=== PATIENT | male | born 1950 | race Caucasian/White ===

== ENCOUNTER 2016-07-22 19:17 | Emergency (ER) | payer MEDICARE, OTHER ==
[2016-07-22 19:31] VITALS: BP 149/79
[2016-07-22] MEDS ORDERED: diphenhydrAMINE 50 MG Cap PO ONE (20:03)
[2016-07-22] MEDS ORDERED: Ketorolac 60 MG/2 ML SDV IM ONE (20:03)
[2016-07-22] MEDS ORDERED: Ondansetron 4 MG Tab.DIS PO ONE (20:03)
[2016-07-22] MEDS ORDERED: Haloperidol Lactate 5 MG/ML SDV IM ONE (20:03)
--- NOTE | 2016-07-22 20:15 | EDM.PDOC ---
ED HPI HEADACHE COMPLAINT - General Chief Complaint: Gastrointestinal Problem Stated Complaint: HERNIA SURGERY PT HAVING NAUSEA/MIGRAINE Time Seen by Provider: 07/22/16 19:48 Source of Information: Reports: Patient History Limitations: Reports: No limitations - History of Present Illness INITIAL COMMENTS - FREE TEXT/NARRATIVE: Patient is a 65-year-old male who presents to the ED complaining of migraine headache. Patient was recently discharged from the hospital 30 minutes prior to arrival after having umbilical hernia and inguinal hernia repair this morning. Patient states while riding in the vehicle he became nauseated and thus developed a migraine headache. States he is permanently disabled for migraine headaches 2nd to multiple triggers. Headache is located to the left side of his head: Retro-orbital, left parietal, and occipital. He has no vision changes. Headache is following similar symptomatology as previous headaches. It is not described as the worse headache of his life. Normally the patient with onset of migraine at home will lay still in a dark room that is quite. Takes propanolol and Zofran. There have been a few times to which he has seeked treatment in the E.D. Denies any vision changes, fever/chills, shortness of breath, chest pain, neck stiffness, or any additional complaints. Patient states the pain to his abdomen is minimal. Past with a history of hypertension, seasonal allergies, low-grade asthma, neuropathy, migraines, osteoarthritis. Current medications include: nortriptyline, propanolol, senna, Avodart, carvedilol, lisinopril, naproxen, albuterol. Timing/Duration: Reports: gradual onset Location: Reports: frontal, occipital, parietal, left, eye, left Quality: Reports: pounding, squeezing Severity: Reports: moderate, similar to past headaches. Denies: worst headache ever Context: Reports: other (nausea/riding in a car) Associated Symptoms: Reports: hyperacusis, photophobia. Denies: aura, dizziness , vision changes Treatments TRAFFIC ENUMERATOR: Reports: Other (see below) (none stated) - Related Data Allergies/ADRs: Allergies Allergy/AdvReac Type Severity Reaction Status Date / Time latex Allergy Blisters Verified 07/22/16 19:32 metoprolol Allergy Cannot Verified 07/22/16 19:32 Remember Sulfa (Sulfonamide Allergy Hives Verified 07/22/16 19:32 Antibiotics) valdecoxib [From Bextra] Allergy Hives Verified 07/22/16 19:32 aspirin AdvReac Nausea Verified 07/22/16 19:32 ibuprofen AdvReac gi upset Verified 07/22/16 19:32 Home Meds: Home Meds Albuterol [IJD: Ventolin HFA] 2 puff INH Q4H PRN #18 gm 01/14/16 [Rx] Ondansetron [Zofran ODT] 4 mg PO Q6H PRN #5 tab.dis 01/14/16 [Rx] Carvedilol 6.25 mg PO DAILY 07/21/16 [History] Clobetasol Propionate [Temovate] 1 applic TOP ASDIRECTED PRN 07/21/16 [History] Lisinopril [Prinivil] 40 mg PO DAILY 07/21/16 [History] Naproxen Sodium [Aleve] 1 - 2 tab PO Q6H PRN 07/21/16 [History] Nortriptyline 25 mg PO DAILY 07/21/16 [History] Propranolol [Inderal LA] 80 mg PO DAILY PRN 07/21/16 [History] Dutasteride [Avodart] 0.5 mg PO DAILY #30 cap 07/22/16 [Rx] Sennosides/Docusate Sodium [Senna S Tablet] 2 tab PO BID #30 tablet 07/22/16 [Rx ] Past Medical History HEENT History: Reports: Allergic rhinitis Cardiovascular History: Reports: Hypertension Respiratory History: Reports: None, Other (see below) Other Respiratory History: . Gastrointestinal History: Reports: GERD, Other (see below) Other Gastrointestinal History: L inguinal hernia Genitourinary History: Reports: Retention, urinary SLEEP TECH History: Reports: None Musculoskeletal History: Reports: Osteoarthritis, Other (see below) Other Musculoskeletal History: chronic hip pain Neurological History: Reports: Migraines Psychiatric History: Reports: Anxiety Endocrine/Metabolic History: Reports: None, Other (see below) (pt did have increased BS 128, states has strong family hx and has discussed with Dr Dugan) Hematologic History: Reports: None Immunologic History: Reports: None Oncologic (Cancer) History: Reports: None Dermatologic History: Reports: None - Past Surgical History Head Surgeries/Procedures: Reports: None HEENT Surgical History: Reports: Naso-sinus surgery Cardiovascular Surgical History: Reports: None Respiratory Surgical History: Reports: None GI Surgical History: Reports: Colonoscopy, Hernia repair/other Male Surgical History: Reports: None Endocrine Surgical History: Reports: None Neurological Surgical History: Reports: None Oncologic Surgical History: Reports: None Dermatological Surgical History: Reports: None - Past Imaging History Past Imaging History: Reports: None Social & Family History - Tobacco Use Smoking Status *Q: Never Smoker - Caffeine Use Caffeine Use: Reports: None - Recreational Drug Use Recreational Drug Use: No ED ROS GENERAL - Review of Systems Review Of Systems: See Below Constitutional: Reports: no symptoms HEENT: Reports: No symptoms Respiratory: Reports: No Symptoms Cardiovascular: Reports: No symptoms GI/Abdominal: Reports: Abdominal pain (s/p inguinal and umbilical hernia repair. ), Nausea. Denies: Vomiting : Reports: urinary retention (agarwal in place s/p surgery) Neurological: Reports: Headache, Difficulty Walking (2nd to right hip pain). Denies: Dizziness, Numbness, Tingling, Weakness - Physical Exam Exam: See Below Exam Limited By: No limitations General Appearance: alert, WD/WN, no apparent distress Eye Exam: bilateral eye: EOMI, PERRL Ears: hearing grossly normal Nose: normal inspection Throat/Mouth: Normal voice, No airway compromise Neck: normal inspection, supple Respiratory/Chest: no respiratory distress, lungs clear, normal breath sounds, no accessory muscle use Cardiovascular: normal peripheral pulses, regular rate, rhythm GI/Abdominal: normal bowel sounds, soft, tender (To surgical incision sites. Sites are intact with no erythema/swelling/drainage) Neuro Exam (Abbreviated): alert, oriented, CN II-XII intact, normal cognition, no motor/sensory deficits, other (cerebellar function intact) Psychiatric: normal affect, normal mood Skin Exam: Warm, Dry, Intact, Normal color Course - Vital Signs Last Recorded V/S: Last Vital Signs Temp 97.9 F 07/22/16 19:25 Pulse 60 07/22/16 19:25 Resp 18 07/22/16 19:25 BP 149/79 H 07/22/16 19:25 Pulse Ox 96 07/22/16 19:25 - Orders/Labs/Meds Orders: Active Orders 24 hr Category Date Time Status EKG Documentation Completion [RC] STAT Care 07/22/16 20:06 Active Meds: Medications Discontinued Medications Generic Name Dose Route Start Last Admin Trade Name Freq PRN Reason Stop Dose Admin Diphenhydramine HCl 50 mg 07/22/16 20:03 07/22/16 20:14 Benadryl PO 07/22/16 20:04 50 mg ONETIME ONE Administration Haloperidol Lactate 5 mg 07/22/16 20:03 07/22/16 20:17 Haldol IM 07/22/16 20:04 5 mg ONETIME ONE Administration Ketorolac Tromethamine 60 mg 07/22/16 20:03 07/22/16 20:18 Toradol IM 07/22/16 20:04 60 mg ONETIME ONE Administration Ondansetron HCl 4 mg 07/22/16 20:03 07/22/16 20:14 Zofran Odt PO 07/22/16 20:04 4 mg ONETIME ONE Administration - Re-Assessments/Exams Free Text/Narrative Re-Assessment/Exam: 07/22/16 20:10 Ordered EKG to better assess QT interval. Patient is on multiple medications that can prolong it. In addition medications ordered include Haldol 5 mg IM, Toradol 60 mg IM, Zofran 4 mg ODT, and Benadryl 50mgs by mouth can prolong as well. EKG sinus rhythm at a rate of 69, ND interval 177, QTC 401, no acute ST changes noted. 2044 Reassessment, headache has resolved with the above medications. Will get the patient up and see how he does. 07/22/16 21:20 patient got up and walked with no difficulties. Will discharge patient home. Departure - Departure Time of Disposition: 21:21 Disposition: Home, Self-Care 01 Condition: good Clinical Impression: S/P inguinal hernia repair, Urinary retention Migraine Qualifiers: Migraine type: unspecified Status migrainosus presence: without status migrainosus Intractability: not intractable Qualified Code(s): G43.909 - Migraine, unspecified, not intractable, without status migrainosus Instructions: Nausea and Vomiting, Adult, [id number], Pain Medicine Instructions, [id number], Abdominal Pain, Adult, [id number] Referrals: Monique Dugan MD [Primary Care Provider] - Forms: ED Department Discharge Additional Instructions: As discussed take all medications as prescribed. Follow instructions by Dr. Dugan. Suggest going home finding a dark room that allows undated disturbed sleep. Followup with your primary care provider as needed for migraine management. Return to the ED for any new or worsening symptoms. No driving this evening since receiving a sedative medication. - My Orders Last 24 Hours: My Active Orders 07/22/16 20:06 EKG Documentation Completion [RC] STAT - Assessment/Plan Last 24 Hours: My Active Orders 07/22/16 20:06 EKG Documentation Completion [RC] STAT
== END 2016-07-22 21:35 | disposition home or self-care (01) ==
LOC: JD.ED 19:17
DX: G43.909 Migraine, unspecified, not intractable, without status migrainosus (principal); R33.9 Retention of urine, unspecified; Z98.890 Other specified postprocedural states; I10 Essential (primary) hypertension; F41.9 Anxiety disorder, unspecified; Z79.899 Other long term (current) drug therapy; Z88.6 Allergy status to analgesic agent; Z88.2 Allergy status to sulfonamides; Z88.8 Allergy status to other drugs, medicaments and biological substances; Z91.040 Latex allergy status
CPT/HCPCS: 93005; 96372; 99283; A9270; J1630; J1885

== ENCOUNTER → 2016-07-22 | Day surgery (SDC) | payer MEDICARE, OTHER ==
[~2016-07-22] MED LIST: Acetaminophen/Codeine 300-30 MG Tab PO ONE; HYDROmorphone 0.5 MG/0.5 ML Syringe IVPUSH PRN; HYDROmorphone 1 MG/ML Syringe ONE; Lactated Ringers 1,000 ML IV SCH; Lactated Ringers 1,000 ML ONE; Lidocaine 1%/Sod Bicarbonate in NS 8.4% 1 ML Syringe IV PRN; Midazolam 1 MG/ML 2 ML SDV ONE; Ondansetron 4 MG/2 ML SDV IVPUSH PRN; Propofol 200 MG/20 ML SDV ONE; Rocuronium 50 MG/5 ML Vial ONE; Sodium Chloride 0.9% 10 ML Syringe FLUSH PRN; ceFAZolin 1 GM Vial ONE; diphenhydrAMINE 50 MG/ML SDV IVPUSH PRN; fentaNYL 100 MCG/2 ML SDV IVPUSH PRN; fentaNYL 100 MCG/2 ML SDV ONE; fentaNYL 250 MCG/5 ML SDV ONE
--- NOTE | 2016-07-22 05:30 | PCM.SN ---
- Free Text/Narrative Note: Patient did acquire preoperative clearance with Dr. Scott prior to surgery on . Echo completed on 07/01/16: Conclusion: 1. Left ventricular ejection fraction is 70 to 75%. LV cavity size is normal. Systolic function is normal with no obvious regional wall motion abnormalities noted. 2. Impaired left ventricular relaxation with normal LV filling pressures-( Grade I Diastolic Dysfunction). Labs completed: Results for MORRIS ROCHA Ref. Range 07/01/2016 09:49 WBC Latest Ref Range: 4.0 - 11.0 K/uL 7.1 RBC Latest Ref Range: 4.40 - 5.80 M/uL 5.23 Hemoglobin Latest Ref Range: 13.5 - 17.5 g/dL 15.9 Hematocrit Latest Ref Range: 40.0 - 50.0 % 47.2 MCV Latest Ref Range: 80.0 - 98.0 fL 90.2 MCH Latest Ref Range: 25.5 - 34.0 pg 30.4 MCHC Latest Ref Range: 31.5 - 36.5 g/dL 33.7 RDW-CV Latest Ref Range: 11.5 - 15.5 % 13.6 RDW-SD Latest Ref Range: 35.5 - 50.0 fl 44.9 Platelet Count Latest Ref Range: 140 - 400 K/uL 181 MPV Latest Ref Range: 8.5 - 12.0 fL 11.0 Seg Neut Absolute Latest Ref Range: 1.8 - 8.0 K/uL 3.8 Lymphocytes Absolute Latest Ref Range: 0.8 - 4.1 K/uL 2.2 Monocytes Absolute Latest Ref Range: 0.0 - 1.0 K/uL 0.7 Eosinophils Absolute Latest Ref Range: 0.0 - 0.7 K/uL 0.4 Basophil Absolute Latest Ref Range: 0.0 - 0.2 K/uL 0.0 Neutrophils Percent Latest Units: % 54.4 Lymphocytes Percent Latest Units: % 30.6 Monocytes Percent Latest Units: % 9.6 Eosinophils Percent Latest Units: % 5.0 Basophil Percent Latest Units: % 0.4 Glucose Latest Ref Range: 70 - 99 mg/dL 121 (H) Sodium Latest Ref Range: 137 - 145 meq/L 140 Potassium Latest Ref Range: 3.5 - 5.1 meq/L 4.4 Chloride Latest Ref Range: 98 - 107 meq/L 103 CO2 Latest Ref Range: 22 - 30 meq/L 23 Anion Gap with K Latest Ref Range: 10 - 20 meq/L 18 BUN Latest Ref Range: 9 - 20 mg/dL 19 Creatinine Latest Ref Range: 0.80 - 1.50 mg/dL 1.00 BUN/Creatinine Ratio Unknown 19.0 Calcium Latest Ref Range: 8.4 - 10.2 mg/dL 9.6 Bilirubin Total Latest Ref Range: 0.2 - 1.3 mg/dL 0.9 Alkaline Phosphatase Latest Ref Range: 38 - 126 U/L 71 ALT - SGPT Latest Ref Range: 21 - 72 U/L 29 AST - SGOT Latest Ref Range: 17 - 59 U/L 28 Protein Total Latest Ref Range: 6.3 - 8.2 g/dL 7.6 Albumin Latest Ref Range: 3.5 - 5.0 g/dL 4.1 eGFR Latest Ref Range: >=60 mL/min/1.73m2 >90 eGFR Non- Latest Ref Range: >=60 mL/min/1.73m2 75 Hetal Miguel NP General Surgery
--- NOTE | 2016-07-22 07:24 | PCM.PREANE ---
Preanesthetic Assessment - Anesthesia/Transfusion/Family Hx Anesthesia History: Prior Anesthesia Without Reaction Other Type of Anesthesia Reaction Comment: pt states that he was unable to void after last surgery-nose Family History of Anesthesia Reaction: No Family History of Anesthesia Reaction, Other: none Transfusion History: No Prior Transfusion(s) - Review of Systems General: No Symptoms Pulmonary: Cough (pt states he inhaled some chemicals on Wednesday that led to a cough, none now) Cardiovascular: No Symptoms Gastrointestinal: No symptoms Neurological: No Symptoms Other: Reports: None - Physical Assessment NPO Status Date: 07/21/16 NPO Status Time: 20:00 Pulse: 58 O2 Sat by Pulse Oximetry: 98 Respiratory Rate: 16 Blood Pressure: 145/79 Height: 1.78 m Weight: 90.718 kg ASA Class: 2 Mental Status: Alert & Oriented x3 Airway Class: Mallampati = 2 Dentition: Reports: Normal Dentition Thyro-Mental Finger Breadths: 2 Mouth Opening Finger Breadths: 2 ROM/Head Extension: Full Lungs: Clear to auscultation, Normal respiratory effort Cardiovascular: Regular Rate, Regular Rhythm (pt states has been told he has a "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 sound"-unable to appreciate) - Allergies Allergies/Adverse Reactions: Allergies Allergy/AdvReac Type Severity Reaction Status Date / Time aspirin Allergy Nausea Verified 07/21/16 15:47 ibuprofen Allergy gi upset Verified 07/21/16 15:47 latex Allergy Blisters Verified 07/21/16 15:47 metoprolol Allergy Cannot Verified 07/21/16 15:47 Remember Sulfa (Sulfonamide Allergy Cannot Verified 07/21/16 15:47 Antibiotics) Remember valdecoxib [From Bextra] Allergy Hives Verified 07/21/16 15:47 - Anesthesia Plan Pre-Op Medication Ordered: Other (ancef 2 G) Beta Elise: Carvedilol Med Last Dose Date: 07/22/16 Med Last Dose Time: 04:30 - Acknowledgements Anesthesia Type Planned: General Anesthesia Pt an Appropriate Candidate for the Planned Anesthesia: Yes Alternatives and Risks of Anesthesia Discussed w Pt/Guardian: Yes Pt/Guardian Understands and Agrees with Anesthesia Plan: Yes PreAnesthesia Questionnaire HEENT History: Reports: Allergic rhinitis Cardiovascular History: Reports: Hypertension Respiratory History: Reports: None, Other (see below) (pt states has inhaler for specific occurances of coughing, which is chemically related, states prior to wednesday he had not used his inhaler for a at least a month) Gastrointestinal History: Reports: GERD (takes OTC med when necessary), Other ( see below) Other Gastrointestinal History: L inguinal hernia Genitourinary History: Reports: None, Other (see below) (pt had trouble voiding after last surgery, has discussed with Dr Dugan) WING COMMANDER History: Reports: None Musculoskeletal History: Reports: Osteoarthritis (pt does use a cane), Other ( see below) Other Musculoskeletal History: chronic hip pain Neurological History: Reports: Migraines Psychiatric History: Reports: Anxiety Endocrine/Metabolic History: Reports: None, Other (see below) (pt did have increased BS 128, states has strong family hx and has discussed with Dr Dugan) Hematologic History: Reports: None Immunologic History: Reports: None Oncologic (Cancer) History: Reports: None Dermatologic History: Reports: None - Past Surgical History Head Surgeries/Procedures: Reports: None HEENT Surgical History: Reports: Naso-sinus surgery Cardiovascular Surgical History: Reports: None Respiratory Surgical History: Reports: None GI Surgical History: Reports: Colonoscopy Female Surgical History: Reports: None Male Surgical History: Reports: None Endocrine Surgical History: Reports: None Neurological Surgical History: Reports: None Musculoskeletal Surgical History: Reports: None Oncologic Surgical History: Reports: None Dermatological Surgical History: Reports: None - Past Imaging History Past Imaging History: Reports: None - SUBSTANCE USE Smoking Status *Q: Never Smoker Recreational Drug Use History: No - HOME MEDS Home Medications: Home Meds Albuterol [IJD: Ventolin HFA] 2 puff INH Q4H PRN #18 gm 01/14/16 [Rx] Ondansetron [Zofran ODT] 4 mg PO Q6H PRN #5 tab.dis 01/14/16 [Rx] Carvedilol [Carvedilol] 6.25 mg PO DAILY 07/21/16 [History] Clobetasol Propionate [Temovate] 1 applic TOP ASDIRECTED PRN 07/21/16 [History] Lisinopril [Prinivil] 40 mg PO DAILY 07/21/16 [History] Naproxen Sodium [Aleve] 1 - 2 tab PO Q6H PRN 07/21/16 [History] Nortriptyline 25 mg PO DAILY 07/21/16 [History] Propranolol [Inderal LA] 80 mg PO DAILY PRN 07/21/16 [History] - CURRENT (IN HOUSE) MEDS Current Meds: Current Medications Lactated Ringer's (Ringers, Lactated) 1,000 mls @ 125 mls/hr IV ASDIRECTED SAPNA Lidocaine/Sodium Bicarbonate (Buffered Lidocaine 1% In Ns 8.4%) 0.25 ml IV ONETIME PRN PRN Reason: Prior to IV Start Sodium Chloride (Saline Flush) 10 ml FLUSH ASDIRECTED PRN PRN Reason: Keep Vein Open Discontinued Medications Cefazolin Sodium (Ancef) Confirm Administered Dose 1 gm .ROUTE .STK-MED ONE Stop: 07/22/16 07:02 Cefazolin Sodium (Ancef) Confirm Administered Dose 1 gm .ROUTE .STK-MED ONE Stop: 07/22/16 07:02 Fentanyl (Sublimaze) Confirm Administered Dose 250 mcg .ROUTE .STK-MED ONE Stop: 07/22/16 07:03 Midazolam HCl (Versed 1 Mg/Ml) Confirm Administered Dose 2 mg .ROUTE .STK-MED ONE Stop: 07/22/16 07:03 Propofol (Diprivan 20 Ml) Confirm Administered Dose 200 mg .ROUTE .STK-MED ONE Stop: 07/22/16 07:02 Rocuronium [place] (Zemuron) Confirm Administered Dose 50 mg .ROUTE .STK-MED ONE Stop: 07/22/16 07:07
[2016-07-22] MEDS: Bupivacaine 0.5%/EPINEPHrine 1:200,000 50 ML MDV ONE ×2 (08:41→09:18)
[2016-07-22] MEDS: Lidocaine 1% with EPINEPHrine 1:100,000 20 ML MDV ONE ×2 (08:41→09:19)
--- NOTE | 2016-07-22 10:48 | PCM.OPNOTE ---
- General Post-Op/Procedure Note Date of Surgery/Procedure: 07/22/16 Operative Procedure(s): Laparoscopic bilateral inguinal hernia repair with mesh (ADRIAN) with incidental primary umbilical hernia repair Pre Op Diagnosis: Left inguinal hernia, tiny umbilical hernia Post-Op Diagnosis: Bilateral pantaloon defects, tiny umbilical hernia Anesthesia Technique: General ET tube, Local (40 mL) Primary Surgeon: Monique Dugan Anesthesia Provider: Mary Olivarez Fluid Replacement, Intraop: 1,500 EBL in mLs: 2 Drain/Tube Comments:: Perry left in place due to history of urinary retention with last operation requiring straight cath, BPH, and small amt of blood with Perry placement (although placement was atraumatic) Complications: None Condition: Good Free Text/Narrative:: Implanted Devices: Bard 3DMAX left and right-sided size XL mesh Indication for Procedure: The patient is a 65-year-old man who was referred to me by Dr. Leann Scott regarding a symptomatic left inguinal hernia. He was also noted to have a small umbilical hernia on exam. We discussed laparoscopic inguinal herniorrhaphy with mesh, left possible bilateral and primary repair of his umbilical hernia. Risks and benefits were reviewed. He does have a history of severe urinary retention after a rhinoplasty requiring catheterization. He does not follow with Urology. Description of Procedure: The patient was taken to the operating room and placed in the supine position. Sequential compressive devices were placed on the bilateral lower extremities. Preoperative antibiotics were administered as per protocol. After induction of general endotracheal anesthesia a Perry catheter was placed by the nursing staff with a small amount of blood with initial placement followed by drainage of concentrated yellow urine. The placement itself had been atraumatic and the Perry had been fully inserted to the hub prior to placement. The arms were tucked at the sides bilaterally and the pressure points were adequately padded. The abdomen was then prepped and draped in usual sterile fashion and an Ioban was applied. A curvilinear supraumbilical incision was then made using a scalpel after first injecting local anesthetic. The incision was deepened down to the fascia and the umbilical hernia was identified and was used to enter the abdomen. The abdomen was bluntly using a hemostat. A David trocar was advanced into the abdomen and the abdomen was insufflated to 15 mm of mercury using CO2. The abdomen was surveyed. Two additional 5 mm low profile trocars were then placed in the mid-lateral abdomen under direct visualization after injecting local anesthetic. The patient was then placed in Trendelenburg. The patient had bilateral pantaloon hernias, left larger than right. The peritoneum was then taken down beginning at the anterior superior iliac spine on the right, progressing to the contralateral side. The peritoneum was then stripped away down to the pubic tubercle exposing Alfred's ligament. The iliac vessels were then exposed and the indirect hernia sac was able to be dissected away from the cord structures utilizing blunt dissection and the harmonic scalpel. The direct defects were also reduced. Great care was taken to avoid the gonadal vessels and the vas defrens, which were dissected away from the hernia sac. There was no evidence of obturator or femoral hernia on either side. Extra large Bard 3DMAX mesh was selected. An 0-Vicryl interrupted suture was placed on the mesh prior to insertion for ease of manipulation. The mesh was placed into the preperitoneal space and unfurled covering all possible hernia defects. The mesh was secured with 2 tacks using the Ethicon secure strap tacker, 1 to Alfred's ligament, and 1 anterolaterally near the anterior superior iliac spine. The peritoneum was then tacked back into place, covering the mesh entirely, using an Ethicon secure strap tacker. During the dissection a small hole was created in the peritoneum overlying the area of the iliacs on the right. I did attempt to repair this with suturing, however this only slightly enlarged the hole as the peritoneum was quite thin in this area. Ultimately, I patched over the area with Seppra Film to prevent bowel adhesion to the tiny area of exposed mesh. The 5 mm trocars were removed under direct visualization with no evidence of bleeding. The David trocar was removed. The umbilical hernia fascial defect was closed using a running 0-Vicryl suture. Additional local anesthetic was injected genevieve- incisionally. 4-0 Monocryl suture was then to tack the umbilical skin back down to the fascia and was used to close the skin incisions. Dermabond was applied. The Perry catheter was left in place (see below). The bilateral testicles were confirmed to be in their normal positions within the scrotum at the end of the case. The patient was awakened from anesthesia, extubated, and transferred to the recovery room in stable condition having tolerated the procedure well. Sponge and instrument counts were reported as correct as the end of the case. Postoperative Plan: I discussed with the patient's daughter my intraoperative findings and post-operative care instructions. The patient does have prostatic hypertrophy on his recent CT aortogram with run off, as well as a small amount of blood with catheter placement today, and a history of severe urinary retention after surgery, for these reasons I will leave his Perry catheter in place until next Wednesday where I will plan to remove it in clinic. I have also started the patient on finasteride as he is intolerant to sulfa moieties and cannot be started on Flomax. Additionally have placed a urology consultation for the patient regarding his urinary issues. The patient will be allowed to further recover and once they are awakened fully from anesthesia may be discharged home this afternoon. The patient is not to lift greater than ten pounds for the next six weeks. They are to call the office with any questions or concerns regarding their incision sites. They may shower tomorrow. They have been counseled on some anticipation of some urinary retention and perineal ecchymosis. The patient desired to take some leftover Tylenol #3 he had at home for pain and no additional prescription was given. He also had Zofran ODT at home. Senna S was recommended to prevent constipation.
--- NOTE | 2016-07-22 10:57 | PCM.POSTAN ---
POST ANESTHESIA ASSESSMENT - MENTAL STATUS Mental Status: alert, oriented - VITAL SIGNS Pulse Rate: 75 SaO2: 97 Resp Rate: 7 Blood Pressure: 150/86 Temperature: 97.9 C - RESPIRATORY Respiratory Status: respiratory rate WNL, airway patent, O2 saturation stable - CARDIOVASCULAR CV Status: pulse rate WNL, blood pressure stable - GASTROINTESTINAL GI Status: no symptoms - PAIN Pain Score: 0 - POST OP HYDRATION Hydration Status: adequate & stable
[2016-07-22 18:44] VITALS: BP 126/67
--- NOTE | 2016-07-23 07:26 | PCM48HPAN ---
Post Anesthesia Note - EVALUATION WITHIN 48HRS OF ANESTHETIC Vital Signs in Normal Range: Yes Patient Participated in Evaluation: No (pt discharged, taken from chart) Respiratory Function Stable: Yes Airway Patent: Yes Cardiovascular Function Stable: Yes Hydration Status Stable: Yes Pain Control Satisfactory: Yes Nausea and Vomiting Control Satisfactory: No (Pt was dischared and then readmitted to ER then stabilized and discharged ) Mental Status Recovered: Yes
== END | disposition home or self-care (01) ==
LOC: JD.SDS 07:08
PROVIDERS: ATTEND Surgery
DX: K40.20 Bilateral inguinal hernia, without obstruction or gangrene, not specified as recurrent (principal); K42.9 Umbilical hernia without obstruction or gangrene; Z88.2 Allergy status to sulfonamides; Z91.040 Latex allergy status; Z88.8 Allergy status to other drugs, medicaments and biological substances; I10 Essential (primary) hypertension; K21.9 Gastro-esophageal reflux disease without esophagitis; F41.9 Anxiety disorder, unspecified; Z68.27 Body mass index [BMI] 27.0-27.9, adult; Z98.890 Other specified postprocedural states; J30.2 Other seasonal allergic rhinitis; Z79.899 Other long term (current) drug therapy; G43.909 Migraine, unspecified, not intractable, without status migrainosus; R33.9 Retention of urine, unspecified; Z88.6 Allergy status to analgesic agent
CPT/HCPCS: 36415; 36600; 49650; 49652; 82803; 83036; 93005; 96372; 99283; A9270; C1781; J0690; J1170; J1200; J1630; J1885; J2250; J3010; J7120; 00830; J2704

== ENCOUNTER 2016-12-17 03:18 | Emergency (ER) | payer MEDICARE, OTHER ==
[2016-12-17 03:33] VITALS: BP 187/87
[2016-12-17] MEDS ORDERED: Ondansetron 4 MG/2 ML SDV IVPUSH ONE (03:54)
[2016-12-17] MEDS ORDERED: Morphine 4 MG/ML Syringe IVPUSH PRN (03:54)
[2016-12-17] MEDS ORDERED: Sodium Chloride 0.9% 10 ML Syringe FLUSH PRN (03:54)
[2016-12-17] MEDS ORDERED: Sodium Chloride 0.9% 1,000 ML IV ONE (03:54)
--- NOTE | 2016-12-17 03:55 | EDM.PDOC ---
ED HPI GENERAL MEDICAL PROBLEM - General Chief Complaint: Abdominal Pain Stated Complaint: GROIN PAIN Time Seen by Provider: 12/17/16 03:42 Source of Information: Reports: Patient History Limitations: Reports: No Limitations - History of Present Illness INITIAL COMMENTS - FREE TEXT/NARRATIVE: 66 y/o M presents with severe L flank pain. Started suddenly during the night. Woke him from sleep. Pain is sharp, severe, currently located in LLQ abdominal area. Slightly radiates to the left flank. Constant. No provoking or relieving factors. No dysuria or hematuria. No nausea, vomiting, or diarrhea. No fever. No hx of similar symptoms previously. Left Lower Abdomen Pain Score (Numeric/FACES): 9 - Related Data Allergies Allergy/AdvReac Type Severity Reaction Status Date / Time latex Allergy Blisters Verified 12/17/16 03:34 metoprolol Allergy Cannot Verified 12/17/16 03:34 Remember Sulfa (Sulfonamide Allergy Hives Verified 12/17/16 03:34 Antibiotics) valdecoxib [From Bextra] Allergy Hives Verified 12/17/16 03:34 aspirin AdvReac Nausea Verified 12/17/16 03:34 ibuprofen AdvReac gi upset Verified 12/17/16 03:34 Home Meds: Home Meds Albuterol [IJD: Ventolin HFA] 2 puff INH Q4H PRN #18 gm 01/14/16 [Rx] Carvedilol 6.25 mg PO DAILY 07/21/16 [History] Clobetasol Propionate [Temovate] 1 applic TOP ASDIRECTED PRN 07/21/16 [History] Lisinopril [Prinivil] 40 mg PO DAILY 07/21/16 [History] Naproxen Sodium [Aleve] 1 - 2 tab PO Q6H PRN 07/21/16 [History] Nortriptyline 25 mg PO DAILY 07/21/16 [History] Propranolol [Inderal LA] 80 mg PO DAILY PRN 07/21/16 [History] Dutasteride [Avodart] 0.5 mg PO DAILY #30 cap 07/22/16 [Rx] Acetaminophen/oxyCODONE [Percocet 325-5 MG] 1 tab PO Q6H PRN #20 tablet [Rx] Ondansetron [Zofran ODT] 4 mg PO Q6H PRN #15 tab.dis 12/17/16 [Rx] Sennosides/Docusate Sodium [Senna S Tablet] 2 tab PO BID PRN 12/17/16 [History] Past Medical History HEENT History: Reports: Allergic Rhinitis Cardiovascular History: Reports: Hypertension Respiratory History: Reports: None Other Respiratory History: . 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 Musculoskeletal History: Reports: Other (See Below), Osteoarthritis Other Musculoskeletal History: chronic hip pain Neurological History: Reports: Migraines Psychiatric History: Reports: Anxiety Endocrine/Metabolic History: Reports: Other (See Below) Hematologic History: Reports: None Immunologic History: Reports: None Oncologic (Cancer) History: Reports: None Dermatologic History: Reports: None - Past Surgical History Head Surgeries/Procedures: Reports: None HEENT Surgical History: Reports: Naso-Sinus Surgery Cardiovascular Surgical History: Reports: None GI Surgical History: Reports: Colonoscopy, Hernia Repair/Other Oncologic Surgical History: Reports: None Dermatological Surgical History: Reports: None - Past Imaging History Past Imaging History: Reports: None Social & Family History - Tobacco Use Smoking Status *Q: Never Smoker Second Hand Smoke Exposure: No - Caffeine Use Caffeine Use: Reports: Tea - Recreational Drug Use Recreational Drug Use: No ED ROS GENERAL - Review of Systems Review Of Systems: See Below Constitutional: Denies: Fever HEENT: Reports: No Symptoms Respiratory: Denies: Shortness of Breath, Cough Cardiovascular: Denies: Chest Pain Endocrine: Reports: No Symptoms GI/Abdominal: Reports: Abdominal Pain. Denies: Vomiting : Reports: Flank Pain. Denies: Dysuria Musculoskeletal: Reports: No Symptoms Skin: Reports: No Symptoms Neurological: Reports: No Symptoms ED EXAM, GI/ABD - Physical Exam Exam: See Below Exam Limited By: No Limitations General Appearance: Alert, WD/WN, Mild Distress Eyes: Bilateral: Normal Appearance Ears: Normal External Exam Nose: Normal Inspection Throat/Mouth: Normal Inspection, Normal Voice, No Airway Compromise Head: Atraumatic, Normocephalic Neck: Normal Inspection, Supple Respiratory/Chest: No Respiratory Distress, Lungs Clear, Normal Breath Sounds, No Accessory Muscle Use Cardiovascular: Regular Rate, Rhythm, No Murmur GI/Abdominal Exam: Soft, No Distention, Other (+LLQ TTP). No: Rebound Back Exam: CVA Tenderness (L). No: CVA Tenderness (R) Neurological: Alert, Oriented, Normal Cognition Psychiatric: Normal Affect, Normal Mood Skin Exam: Warm, Dry, Intact, Normal Color, No Rash Course - Vital Signs Last Recorded V/S: Last Vital Signs Temp 36.6 C 12/17/16 03:25 Pulse 69 12/17/16 03:25 Resp 18 12/17/16 03:25 BP 187/87 H 12/17/16 03:25 Pulse Ox 100 12/17/16 03:25 - Orders/Labs/Meds Orders: Active Orders 24 hr Category Date Time Status Peripheral IV Care [RC] . DIRECTED Care 12/17/16 03:54 Active Abdomen Pelvis wo Cont [CT] Stat Exams 12/17/16 03:54 Taken Peripheral IV Insertion Adult [OM.PC] Routine Oth 12/17/16 03:54 Ordered Labs: Laboratory Tests 12/17/16 12/17/16 12/17/16 Range/Units 03:30 04:00 04:00 WBC 10.37 H (4.23-9.07) K/mm3 RBC 5.60 (4.63-6.08) M/mm3 Hgb 16.4 (13.7-17.5) gm/L Hct 48.3 (40.1-51.0) % MCV 86.3 (79.0-92.2) fl MCH 29.3 (25.7-32.2) pg MCHC 34.0 (32.2-35.5) g/dl RDW Std Deviation 40.9 (35.1-43.9) fL Plt Count 179 (163-337) K/mm3 MPV 10.6 (9.4-12.3) fl Neut % (Auto) 79.8 H (34.0-67.9) % Lymph % (Auto) 11.1 L (21.8-53.1) % [place] % (Auto) 7.4 (5.3-12.2) % Eos % (Auto) 1.0 (0.8-7.0) Baso % (Auto) 0.4 (0.1-1.2) % Neut # (Auto) 8.28 H (1.78-5.38) K/mm3 Lymph # (Auto) 1.15 L (1.32-3.57) K/mm3 [place] # (Auto) 0.77 (0.30-0.82) K/mm3 Eos # (Auto) 0.10 (0.04-0.54) K/mm3 Baso # (Auto) 0.04 (0.01-0.08) K/mm3 Sodium 139 (136-145) mEq/L Potassium 3.6 (3.5-5.1) mEq/L Chloride 103 (98-107) mEq/L Carbon Dioxide 27 (21-32) mEq/L Anion Gap 12.6 (5-15) BUN 23 H (7-18) mg/dL Creatinine 1.2 (0.7-1.3) mg/dL Est Cr Clr Drug Dosing 62.52 mL/min Estimated GFR (MDRD) > 60 (>60) mL/min BUN/Creatinine Ratio 19.2 H (14-18) Glucose 118 H (80-115) mg/dL Calcium 9.7 (8.5-10.1) mg/dL Total Bilirubin 0.9 (0.2-1.0) mg/dL AST 23 (15-37) U/L ALT 28 (16-63) U/L Alkaline Phosphatase 91 (46-116) U/L Total Protein 8.1 (6.4-8.2) g/dl Albumin 4.3 (3.4-5.0) g/dl Globulin 3.8 gm/dL Albumin/Globulin Ratio 1.1 (1-2) Urine Color Yellow (Yellow) Urine Appearance Clear (Clear) Urine pH 7.0 (5.0-8.0) Ur Specific [place] 1.025 (1.005-1.030) Urine Protein Trace H (Negative) Urine Glucose (UA) Negative (Negative) Urine Ketones Negative (Negative) Urine Occult Blood Negative (Negative) Urine Nitrite Negative (Negative) Urine Bilirubin Negative (Negative) Urine Urobilinogen 0.2 (0.2-1.0) Ur Leukocyte Esterase Negative (Negative) Urine RBC 0-5 (0-5) /hpf Urine WBC 0-5 (0-5) /hpf Ur Epithelial Cells 0-5 (0-5) /hpf Urine Bacteria Few (FEW) /hpf Urine Mucus Few (FEW) /hpf Meds: Medications Discontinued Medications Generic Name Dose Route Start Last Admin Trade Name Freq PRN Reason Stop Dose Admin Hydromorphone HCl 1 mg 12/17/16 04:41 12/17/16 04:45 Dilaudid IVPUSH 12/17/16 04:42 1 mg ONETIME ONE Administration Hydromorphone HCl 1 mg 12/17/16 04:53 Dilaudid IVPUSH Q1H PRN Pain Sodium Chloride 1,000 mls @ 1,000 mls/hr 12/17/16 03:54 12/17/16 04:01 Normal Saline IV 12/17/16 04:53 1,000 mls/hr ONETIME ONE Administration Morphine Sulfate 4 mg 12/17/16 03:54 12/17/16 04:05 Morphine IVPUSH 4 mg Q2H PRN Administration Pain Ondansetron HCl 4 mg 12/17/16 03:54 12/17/16 04:05 Zofran IVPUSH 12/17/16 03:55 4 mg ONETIME ONE Administration Sodium Chloride 10 ml 12/17/16 03:54 12/17/16 03:50 Saline Flush FLUSH 10 ml ASDIRECTED PRN Administration Keep Vein Open - Re-Assessments/Exams Free Text/Narrative Re-Assessment/Exam: 12/17/16 06:35 CT shows 2mm ureterolithiasis at the L UPJ. Creatinine 1.2. Given small distal stone, counselled patient that he is likely to pass it. Pain meds and fluids given, felt better. Discussed need for urology f/u and return precautions. Departure - Departure Time of Disposition: 06:41 Disposition: Home, Self-Care 01 Clinical Impression: Ureterolithiasis - Discharge Information Prescriptions: Acetaminophen/oxyCODONE [Percocet 325-5 MG] 1 tab PO Q6H PRN #20 tablet PRN Reason: Pain Ondansetron [Zofran ODT] 4 mg PO Q6H PRN #15 tab.dis PRN Reason: Nausea Referrals: Leann Scott DO [Primary Care Provider] - Forms: ED Department Discharge Additional Instructions: 1. Take percocet as prescribed for pain. No driving, working, or operating heavy machinery while taking this medication since it could make you confused or sleepy. 2. Take ondansetron as needed for nausea 3. Followup with a urologist in about a week if you continue to have pain. Both [facility] and [facility] in [place] have urology specialists. 4. Return to the ED if you have severe pain, vomiting without keeping fluids down, fever, or other concerning symptoms. - My Orders Last 24 Hours: My Active Orders 12/17/16 03:54 Peripheral IV Care [RC] . DIRECTED Abdomen Pelvis wo Cont [CT] Stat Peripheral IV Insertion Adult [OM.PC] Routine - Assessment/Plan Last 24 Hours: My Active Orders 12/17/16 03:54 Peripheral IV Care [RC] . DIRECTED Abdomen Pelvis wo Cont [CT] Stat Peripheral IV Insertion Adult [OM.PC] Routine
[2016-12-17] MEDS ORDERED: HYDROmorphone 1 MG/ML Syringe IVPUSH ONE (04:41)
[2016-12-17] MEDS ORDERED: HYDROmorphone 1 MG/ML Syringe IVPUSH PRN (04:53)
--- NOTE | 2016-12-17 08:51 | CT ---
CT abdomen and pelvis Technique: Multiple axial sections were obtained from above the dome of the diaphragm inferiorly through the pubic symphysis. Intravenous and oral contrast was not given. Study performed as a ureteral stone protocol. Findings: Inflammatory change noted around the left kidney. Left kidney is slightly swollen. Hydronephrosis of the left kidney is seen with dilated left ureter to the UVJ. These findings are caused by an obstructing distal left ureteral stone measuring approximately 2.5 mm. Visualized lung bases show slight scarring or atelectasis within the right base. Noncontrast appearance of the liver and spleen appears within normal limits. Small hiatal hernia is noted. Gallbladder shows no calcified gallstones. Adrenal glands show no nodule. Pancreas appears within normal limits. Aorta shows no aneurysmal dilatation. No retroperitoneal adenopathy is seen. No pelvic mass or adenopathy is seen. Mild increased stool noted within the colon. Appendix is seen which appears normal. Bone window settings were reviewed which show scattered degenerative spurring with mild scoliosis being seen within the spine. Severe degenerative change noted within the right hip with flattening and cystic change being seen within the femoral head as well as cystic change within the acetabulum. Moderate degenerative change seen within the left hip. Impression: 1. 2.5 mm obstructing stone within the distal left ureter. This obstructing stone causes proximal hydronephrosis as well as inflammatory change around the left kidney as well as swelling within the left kidney. 2. Other incidental findings as noted above. Diagnostic code #3 I agree with preliminary report issued by [email or web address] ([facility] report finalized on 12/17/16, 5:33 AM Central Time)
== END 2016-12-17 06:06 | disposition home or self-care (01) ==
LOC: JD.ED 03:18
DX: N13.2 Hydronephrosis with renal and ureteral calculous obstruction (principal); I10 Essential (primary) hypertension; Z91.040 Latex allergy status; Z88.2 Allergy status to sulfonamides; Z88.6 Allergy status to analgesic agent; Z79.899 Other long term (current) drug therapy
CPT/HCPCS: 36415; 74176; 80053; 81001; 85025; 96361; 96374; 96375; 99284; J1170; J2270; J2405; J7040; J7050

== ENCOUNTER 2016-12-29 20:12 | Emergency (ER) | payer MEDICARE, OTHER ==
[2016-12-29 20:25] VITALS: BP 173/84
--- NOTE | 2016-12-29 20:56 | EDM.PDOC ---
ED HPI GENERAL MEDICAL PROBLEM - General Chief Complaint: Neurological Problem Stated Complaint: SHOOTING PAINS IN HEAD AND NECK Time Seen by Provider: 12/29/16 20:25 Source of Information: Reports: Patient, RN Notes Reviewed History Limitations: Reports: No Limitations - History of Present Illness INITIAL COMMENTS - FREE TEXT/NARRATIVE: The patient states that he woke with a shock-like pain that started at the right parieto-occipital junction and radiated down the back right of his head, and down the back right of his neck yesterday morning, 12/28/2016, around 01:00. These shock-like sensations recur every 1-3 minutes, lasting only 2-3 seconds , but are severe enough to cause the patient to flinch. The sensation is now spreading more to the right side of his head and to the right side of his face, and when they occur, he has pain in the right side of his throat. The patient reports being essentially pain-free in between the shocks. The patient has not identified any actions that either induce or prevent the sensation. He denies having a rash. He denies decreased hearing on the right. He reports no autonomic symptoms or tearing. No similar symptoms prior to yesterday morning. The patient's PCP is Dr. Leann Scott, who has not been notified of this event. Other Treatments [employer]: aleve Head Pain Score (Numeric/FACES): 0 - Related Data Allergies Allergy/AdvReac Type Severity Reaction Status Date / Time latex Allergy Blisters Verified 12/29/16 20:20 metoprolol Allergy Cannot Verified 12/29/16 20:20 Remember Sulfa (Sulfonamide Allergy Hives Verified 12/29/16 20:20 Antibiotics) valdecoxib [From Bextra] Allergy Hives Verified 12/29/16 20:20 aspirin AdvReac Nausea Verified 12/29/16 20:20 ibuprofen AdvReac gi upset Verified 12/29/16 20:20 Home Meds: Home Meds Carvedilol 12.5 mg PO DAILY 07/21/16 [History] Lisinopril [Prinivil] 40 mg PO DAILY 07/21/16 [History] Nortriptyline 25 mg PO DAILY 07/21/16 [History] amLODIPine [Norvasc] 5 mg PO DAILY 12/29/16 [History] Indomethacin [Indomethacin ER] 75 mg PO DAILY #15 capsule.er 12/30/16 [Rx] Past Medical History Cardiovascular History: Reports: High Cholesterol (diet-controlled), Hypertension Genitourinary History: Reports: Renal Calculus, Other (See Below) (Left kidney failure, resolved) Musculoskeletal History: Reports: Osteoarthritis (right hip and right knee) Psychiatric History: Reports: Anxiety, Depression Endocrine/Metabolic History: Reports: Diabetes, Type II (diet-controlled) - Past Surgical History HEENT Surgical History: Reports: Naso-Sinus Surgery (deviated septum), Oral Surgery (2 wisdom teeth) GI Surgical History: Reports: Colonoscopy, Hernia, Inguinal (left) - Past Imaging History Past Imaging History: Reports: None Social & Family History - Tobacco Use Smoking Status *Q: Never Smoker Second Hand Smoke Exposure: No - Caffeine Use Caffeine Use: Reports: Tea - Alcohol Use Alcohol Use History: No - Recreational Drug Use Recreational Drug Use: No - Living Situation & Occupation Living situation: Reports: , with Family (daughter) Occupation: Unemployed ED ROS GENERAL - Review of Systems Review Of Systems: See Below Constitutional: Reports: No Symptoms HEENT: Reports: No Symptoms Respiratory: Reports: No Symptoms Cardiovascular: Reports: No Symptoms Endocrine: Reports: No Symptoms GI/Abdominal: Reports: No Symptoms : Reports: No Symptoms Musculoskeletal: Reports: No Symptoms Skin: Reports: No Symptoms Neurological: Reports: No Symptoms Psychiatric: Reports: No Symptoms Hematologic/Lymphatic: Reports: No Symptoms Immunologic: Reports: No Symptoms - Physical Exam Exam: See Below Exam Limited By: No Limitations General Appearance: Alert, WD/WN, Mild Distress (periodically flinches with pain ) Eye Exam: Bilateral Eye: EOMI, Normal Inspection, PERRL Ears: Normal External Exam, Normal Canal, Hearing Grossly Normal, Normal TMs Nose: Normal Inspection, Normal Mucosa, No Blood Throat/Mouth: Normal Inspection, Normal Lips, Normal Teeth, Normal Gums, Normal Oropharynx, Normal Voice, No Airway Compromise Head Exam: Atraumatic, Normocephalic. No: Scalp Tenderness, Facial Tenderness Neck: Normal Inspection, Supple, Non-Tender, Full Range of Motion Respiratory/Chest: No Respiratory Distress, Lungs Clear, Normal Breath Sounds, No Accessory Muscle Use Cardiovascular: Normal Peripheral Pulses, Regular Rate, Rhythm, No Gallop, No JVD, No Murmur, No Rub GI/Abdominal: Normal Bowel Sounds, Soft, Non-Tender, No Organomegaly, No Distention, No Abnormal Bruit, No Mass (Male) Exam: Deferred Rectal (Males) Exam: Deferred Neuro Exam (Abbreviated): Alert, Oriented, Normal Cognition, No Motor/Sensory Deficits Back Exam: Normal Inspection, Full Range of Motion, NT Extremities: Normal Inspection, Normal Range of Motion, No Pedal Edema, Normal Capillary Refill Psychiatric: Normal Affect Skin Exam: Warm, Dry, Intact, Normal Color, No Rash Course - Vital Signs Last Recorded V/S: Last Vital Signs Temp 36.6 C 12/29/16 20:20 Pulse 74 12/29/16 20:20 Resp 17 12/29/16 20:20 BP 173/84 H 12/29/16 20:20 Pulse Ox 98 12/29/16 20:20 - Orders/Labs/Meds Orders: Active Orders 24 hr Category Date Time Status Head w Cont [CT] Routine Exams 12/29/16 Taken Head w Cont [CT] Stat Exams 12/29/16 20:52 Taken Sodium Chloride 0.9% [Normal Saline] 1,000 ml Med 12/29/16 21:00 Active IV ASDIRECTED Medication Orders Sodium Chloride (Normal Saline) 1,000 mls @ 150 mls/hr IV ASDIRECTED SAPNA Last Admin: 12/29/16 21:01 Dose: 150 mls/hr Labs: Laboratory Tests 12/29/16 Range/Units 21:05 Sodium 141 (136-145) mEq/L Potassium 3.9 (3.5-5.1) mEq/L Chloride 104 (98-107) mEq/L Carbon Dioxide 26 (21-32) mEq/L Anion Gap 14.9 (5-15) BUN 19 H (7-18) mg/dL Creatinine 0.9 (0.7-1.3) mg/dL Est Cr Clr Drug Dosing 83.36 mL/min Estimated GFR (MDRD) > 60 (>60) mL/min BUN/Creatinine Ratio 21.1 H (14-18) Glucose 131 H (80-115) mg/dL Calcium 9.1 (8.5-10.1) mg/dL Meds: Medications Generic Name Dose Route Start Last Admin Trade Name Freq PRN Reason Stop Dose Admin Sodium Chloride 1,000 mls @ 150 mls/hr 12/29/16 21:00 12/29/16 21:01 Normal Saline IV 150 mls/hr ASDIRECTED SAPNA Administration - Re-Assessments/Exams Free Text/Narrative Re-Assessment/Exam: 12/29/16 20:54 The description of the patient's headache is consistent with trigeminal neuralgia, with exception of the location. While the patient is now experiencing right head and right facial pain, the original pain, that he still has, starts at the right posterior parieto-occipital area, and radiates down the posterior aspect of side of his neck. This is not the distribution of the trigeminal nerve. Because of this, I suspect that the patient is suffering from a condition known as Primary Stabbing Headache. A physical abnormality, such as a mass, needs to be excluded. I have therefore ordered a CT of the head with contrast. I will check his renal function, and give IV fluid. 12/29/16 21:42 CT of the head without contrast is read by [facility] as "Chronic changes. No acute intracranial process." The CT ordered was with IV contrast. This was discussed with the environmental technician. He will repeat the CT scan with IV contrast. 12/30/16 00:05 CT of the head with IV contrast is read by [facility] as "No significant change from earlier examination. Postcontrast images does not reveal any pathologic enhancement." 12/30/16 00:17 Test results discussed with the patient. As above, the diagnosis is unclear. The distribution is not really consistent with trigeminal neuralgia, therefore it appears to be most likely that he is suffering from Primary Stabbing Headache. Recommended treatment is melatonin and Indocin. We do not carry melatonin here, although it is available [id number]. I will start the patient on Indocin, and e-prescribe additional. Further, I will refer the patient to a Neurologist for further evaluation. Departure - Departure Time of Disposition: 00:18 Disposition: Home, Self-Care 01 Condition: Fair Clinical Impression: Primary stabbing headache - Discharge Information Referrals: Leann Scott DO [Primary Care Provider] - Ángela Soares MD [Ordering Only Provider] - Forms: ED Department Discharge Additional Instructions: You were seen in the emergency room for right head and face shocking pain every few minutes. Workup in the ER included a basic metabolic panel and a CT scan of your head with IV contrast. Your entire workup was normal, with the exception of your blood sugar being elevated at 131. No brain tumors bleed were found. The cause of your symptoms is unclear, but you may have a condition called Primary Shocking Headache. Less likely, based on the distribution of your pain, is trigeminal neuralgia. The recommended treatment for Primary Shocking Headache is melatonin months old [id number], 3-12 mg per day, and Indocin (indomethacin). Take one tablet of Indocin, with food, daily. We recommend that you follow-up with the Neurologist Dr. Soares at the next available appointment. If any other problems, please do not hesitate to return to the ER. - My Orders Last 24 Hours: My Active Orders 12/29/16 Head w Cont [CT] Routine 12/29/16 20:52 Head w Cont [CT] Stat 12/29/16 21:00 Sodium Chloride 0.9% [Normal Saline] 1,000 ml IV ASDIRECTED - Assessment/Plan Last 24 Hours: My Active Orders 12/29/16 Head w Cont [CT] Routine 12/29/16 20:52 Head w Cont [CT] Stat 12/29/16 21:00 Sodium Chloride 0.9% [Normal Saline] 1,000 ml IV ASDIRECTED
[2016-12-29] MEDS ORDERED: Sodium Chloride 0.9% 1,000 ML IV SCH (21:00)
[2016-12-30] MEDS ORDERED: Indomethacin 25 MG Cap PO STA (00:15)
--- NOTE | 2016-12-30 08:21 | CT ---
Head CT Technique: Multiple axial sections through the brain were obtained. Intravenous contrast was not utilized. Comparison: No prior intracranial imaging. Findings: Ventricles along with basal cisterns and sulci over the convexities are mildly prominent. Low-density area noted within the left basal ganglia either due to old lacunar infarct or prominent perivascular space. No other abnormal parenchymal densities are seen. No evidence of intracranial hemorrhage. No midline shift or mass effect is seen. Bone window settings were reviewed which show no acute calvarial abnormality. Visualized sinuses are clear. Impression: 1. Incidental finding as noted above. Nothing acute is appreciated on noncontrast head CT study. Diagnostic code #2 I agree with preliminary report issued by [facility] ([facility] preliminary report dictated on 12/29/16, 10:37 PM Central Time)
--- NOTE | 2016-12-30 08:21 | CT ---
Head CT Technique: Multiple axial sections were obtained. Intravenous contrast was utilized. Comparison: Previous noncontrast study performed earlier on the same day. Findings: Ventricles along with basal cisterns and sulci over the convexities are mildly prominent. No abnormal parenchymal densities are seen. No areas of abnormal enhancement are seen. No midline shift or mass effect is seen. Bony structures remain unremarkable. Impression: 1. No acute intracranial abnormality is seen. No abnormal areas of enhancement are seen. Diagnostic code #1 Agree with preliminary report issued by [facility] ([facility] preliminary report dictated on 12/29/16, 11:50 PM Central Time)
--- NOTE | 2016-12-30 09:07 | CT ---
Head CT Technique: Multiple axial sections through the brain were obtained. Intravenous contrast was not utilized. Comparison: No prior intracranial imaging. Findings: Ventricles along with basal cisterns and sulci over the convexities are mildly prominent. Low-density area noted within the left basal ganglia either due to old lacunar infarct or prominent perivascular space. No other abnormal parenchymal densities are seen. No evidence of intracranial hemorrhage. No midline shift or mass effect is seen. Bone window settings were reviewed which show no acute calvarial abnormality. Visualized sinuses are clear. Impression: 1. Incidental finding as noted above. Nothing acute is appreciated on noncontrast head CT study. Diagnostic code #2 I agree with preliminary report issued by [facility] ([facility] preliminary report dictated on 12/29/16, 10:37 PM Central Time) Head CT Technique: Multiple axial sections were obtained. Intravenous contrast was utilized. Comparison: Previous noncontrast study performed earlier on the same day. Findings: Ventricles along with basal cisterns and sulci over the convexities are mildly prominent. No abnormal parenchymal densities are seen. No areas of abnormal enhancement are seen. No midline shift or mass effect is seen. Bony structures remain unremarkable. Impression: 1. No acute intracranial abnormality is seen. No abnormal areas of enhancement are seen. Diagnostic code #1 Agree with preliminary report issued by [facility] ([facility] preliminary report dictated on 12/29/16, 11:50 PM Central Time) [facility]
== END 2016-12-30 00:31 | disposition home or self-care (01) ==
LOC: JD.ED 20:12
DX: R51 Headache (principal); E78.00 Pure hypercholesterolemia, unspecified; I10 Essential (primary) hypertension; Z88.8 Allergy status to other drugs, medicaments and biological substances; Z88.2 Allergy status to sulfonamides; Z91.040 Latex allergy status; Z79.899 Other long term (current) drug therapy; E11.9 Type 2 diabetes mellitus without complications
CPT/HCPCS: 36415; 70470; 80048; 96360; 96361; 99284; A9270; J7040; 70460; 70460-26; 99282

== ENCOUNTER 2020-04-11 07:06 | Inpatient (IN) | payer MEDICARE, OTHER ==
--- NOTE | 2020-04-11 08:07 | EDM.PDOC ---
ED HPI GENERAL MEDICAL PROBLEM - General Chief Complaint: Gastrointestinal Problem Stated Complaint: RECTAL BLEEDING Time Seen by Provider: 04/11/20 08:07 Source of Information: Reports: Patient History Limitations: Reports: No Limitations - History of Present Illness INITIAL COMMENTS - FREE TEXT/NARRATIVE: 69-year-old male presents to the ED for evaluation of bright red blood passage per rectum. First time was after a bowel movement but is at approximately 1800 hrs. last evening. He states he then had 3-4 bowel movements following this. The first bowel movement was quite hard and somewhat painful to pass. All bowel movements after this contained bright red blood mixed in with the stool and on the outer part of the stool. He had blood per rectum at 0 430 and again at 0600 hrs. this morning. He has had some diffuse lower abdominal cramping pain. Patient was having been of cramping this morning that he did take 1 Tylenol No. 3 tablets about 0500 hrs. He has had bilateral inguinal hernia rap[place] is with mesh graft placement done by Dr. Gris Dugan at [facility] in the past. He has had no previous bleeding per rectum. Last colonoscopy was around age 50. No family history of colon cancer to his knowledge. He follows a strong vegan diet. Bowel function is usually fairly regular due to the high fiber in his diet. He is not on any blood thinners. The initial bowel movement was somewhat painful and difficult to pass. Subsequent bowel movements have not been painful at all. He is otherwise well. He does not feel weak dizzy or lightheaded or short of breath. Onset: Sudden Onset Date: 04/10/20 Onset Time: 18:00 Duration: Hour(s):, Intermittent Location: Reports: Abdomen (Bleeding per rectum.) Quality: Reports: Other (Bright red bleeding per rectum x4) Severity: Moderate (episodes since 1800 hrs. 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 (see below) (1.) Lower Abdomen Pain Score (Numeric/FACES): 1 - Related Data Allergies Allergy/AdvReac Type Severity Reaction Status Date / Time latex Allergy Blisters Verified 04/11/20 07:20 metoprolol Allergy Cannot Verified 04/11/20 07:20 Remember Sulfa (Sulfonamide Allergy Hives Verified 04/11/20 07:20 Antibiotics) valdecoxib [From Bextra] Allergy Hives Verified 04/11/20 07:20 aspirin AdvReac Nausea Verified 04/11/20 07:20 ibuprofen AdvReac gi upset Verified 04/11/20 07:20 Home Meds: Home Meds Nortriptyline 25 mg PO DAILY 07/21/16 [History] lisinopriL [Prinivil] 40 mg PO DAILY 07/21/16 [History] Indomethacin [Indomethacin ER] 75 mg PO DAILY #15 capsule.er 12/30/16 [Rx] Acetaminophen/Codeine [Tylenol with Codeine No.3 300MG/30MG] 1 tab PO Q4H PRN 04/11/20 [History] Past Medical History HEENT History: Reports: Allergic Rhinitis Cardiovascular History: Reports: High Cholesterol, Hypertension Respiratory History: Reports: None Other Respiratory History: . Gastrointestinal History: Reports: Chronic Constipation, GERD, Other (See Below) Other Gastrointestinal History: L inguinal hernia. 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 Musculoskeletal History: Reports: Osteoarthritis Other Musculoskeletal History: chronic hip pain Neurological History: Reports: Migraines Psychiatric History: Reports: Anxiety, Depression Endocrine/Metabolic History: Reports: Diabetes, Type II Hematologic History: Reports: None Immunologic History: Reports: None Oncologic (Cancer) History: Reports: None Dermatologic History: Reports: None - Infectious Disease History Infectious Disease History: Reports: Chicken Pox, Mumps - Past Surgical History Head Surgeries/Procedures: Reports: None HEENT Surgical History: Reports: Naso-Sinus Surgery, Oral Surgery Cardiovascular Surgical History: Reports: None Respiratory Surgical History: Reports: None GI Surgical History: Reports: Colonoscopy, Hernia, Inguinal Male Surgical History: Reports: None Endocrine Surgical History: Reports: None Neurological Surgical History: Reports: None Musculoskeletal Surgical History: Reports: None Oncologic Surgical History: Reports: None Dermatological Surgical History: Reports: None - Past Imaging History Past Imaging History: Reports: None Social & Family History - Family History Family Medical History: No Pertinent Family History HEENT: Reports: Cataract Cardiac: Reports: High Cholesterol, Hypertension Respiratory: Reports: None GI: Reports: None : Reports: None OBGYN: Reports: None Musculoskeletal: Reports: Arthritis Neurological: Reports: Migraines Oncologic: Reports: Colon - Tobacco Use Tobacco Use Status *Q: Never Tobacco User - Caffeine Use Caffeine Use: Reports: Soda, Tea - Recreational Drug Use Recreational Drug Use: No - Living Situation & Occupation Living situation: Reports: , with Family (daughter) Occupation: Unemployed ED ROS GENERAL - Review of Systems Review Of Systems: See Below Constitutional: Denies: Fever, Chills, Malaise, Weakness, Fatigue HEENT: Reports: Glasses Respiratory: Reports: No Symptoms Cardiovascular: Reports: Blood Pressure Problem Endocrine: Reports: No Symptoms GI/Abdominal: Reports: Hematochezia : Reports: Frequency (Urinary frequency.) Musculoskeletal: Reports: Back Pain, Joint Pain (Vaginal low back pain arthritis knees hips neck which he takes indomethacin 75 mg extended release) Skin: Reports: No Symptoms ( as needed 4.) Neurological: Reports: No Symptoms Psychiatric: Reports: No Symptoms Hematologic/Lymphatic: Reports: No Symptoms ED EXAM, GI/ABD - Physical Exam Exam: See Below Exam Limited By: No Limitations General Appearance: Alert, WD/WN, No Apparent Distress, Other (Vital signs show temperature 36.6 with a heart rate of 98 in sinus respiratory is 18 with O2 sats 98% room air BP slightly elevated 164/79. Patient does have a primary hypertension problem but is anxious upon arrival in the ED.) Eyes: Bilateral: Normal Appearance (No blepharal pallor or scleral icterus appreciated.) Throat/Mouth: Normal Inspection, Normal Lips, Normal Oropharynx Respiratory/Chest: No Respiratory Distress, Lungs Clear, Normal Breath Sounds, No Accessory Muscle Use Cardiovascular: Normal Peripheral Pulses, Regular Rate, Rhythm, No Edema, No Gallop, No Murmur, No Rub GI/Abdominal Exam: Soft, No Organomegaly, No Abnormal Bruit, No Mass, Pelvis Stable, Tender (Oddly tender left upper lateral left abdomen), Abnormal Bowel Sounds, Other (Previous umbilical surgery for laparoscopic hernia repairs.). No: Guarding, Rigid, Rebound ( with no rebound tenderness or guarding.) (Male) Exam: No Hernia Back Exam: Normal Inspection, Full Range of Motion. No: CVA Tenderness (L), CVA Tenderness (R) Extremities: Normal Inspection, Normal Range of Motion, Non-Tender, No Pedal Edema Neurological: Alert, Oriented, CN II-XII Intact, Normal Cognition Psychiatric: Normal Affect, Normal Mood, Anxious Skin Exam: Warm, Dry, Intact (Anxious as to be expected), Normal Color, No Rash Course - Vital Signs Last Recorded V/S: Last Vital Signs Temp 36.6 C 04/11/20 07:25 Pulse 98 04/11/20 07:25 Resp 18 04/11/20 07:25 BP 164/79 H 04/11/20 07:25 Pulse Ox 98 04/11/20 07:25 - Orders/Labs/Meds Orders: Active Orders 24 hr Category Date Time Status Dextrose 5%-0.9% NaCl [Dextrose 5%-Normal Saline] 1,000 Med 04/11/20 10:30 Active ml IV ASDIRECTED Sodium Chloride 0.9% [Saline Flush] Med 04/11/20 10:41 Active 10 ml FLUSH ONETIME PRN Medication Orders Dextrose/Sodium Chloride (Dextrose 5%-Normal Saline) 1,000 mls @ 150 mls/hr IV ASDIRECTED SAPNA Last Admin: 04/11/20 10:37 Dose: 150 mls/hr Documented by: ZACHARY Sodium Chloride (Saline Flush) 10 ml FLUSH ONETIME PRN PRN Reason: IV FLUSH Last Admin: 04/11/20 11:50 Dose: 10 ml Documented by: Admin: 04/11/20 10:45 Dose: 10 ml Documented by: ZACHARY Labs: Laboratory Tests 04/11/20 04/11/20 04/11/20 Range/Units 08:54 08:54 08:54 WBC 13.82 H (4.23-9.07) K/mm3 RBC 5.26 (4.63-6.08) M/mm3 Hgb 15.9 (13.7-17.5) gm/dl Hct 48.1 (40.1-51.0) % MCV 91.4 (79.0-92.2) fl MCH 30.2 (25.7-32.2) pg MCHC 33.1 (32.2-35.5) g/dl RDW Std Deviation 45.2 H (35.1-43.9) fL Plt Count 154 L (163-337) K/mm3 MPV 11.4 (9.4-12.3) fl Neut % (Auto) 82.6 H (34.0-67.9) % Lymph % (Auto) 9.8 L (21.8-53.1) % [place] % (Auto) 6.6 (5.3-12.2) % Eos % (Auto) 0.6 L (0.8-7.0) Baso % (Auto) 0.2 (0.1-1.2) % Neut # (Auto) 11.42 H (1.78-5.38) K/mm3 Lymph # (Auto) 1.35 (1.32-3.57) K/mm3 [place] # (Auto) 0.91 H (0.30-0.82) K/mm3 Eos # (Auto) 0.08 (0.04-0.54) K/mm3 Baso # (Auto) 0.03 (0.01-0.08) K/mm3 Manual Slide Review Normal smear PT 11.4 (9.7-12.0) SECONDS INR 1.07 APTT 27.7 (21.7-31.4) SECONDS Sodium 141 (136-145) mEq/L Potassium 4.3 (3.5-5.1) mEq/L Chloride 104 (98-107) mEq/L Carbon Dioxide 28 (21-32) mEq/L Anion Gap 13.3 (5-15) BUN 24 H (7-18) mg/dL Creatinine 1.1 (0.7-1.3) mg/dL Est Cr Clr Drug Dosing 65.44 mL/min Estimated GFR (MDRD) > 60 (>60) mL/min BUN/Creatinine Ratio 21.8 H (14-18) Glucose 112 (80-115) mg/dL Calcium 9.2 (8.5-10.1) mg/dL Total Bilirubin 1.0 (0.2-1.0) mg/dL AST 37 (15-37) U/L ALT 57 (16-63) U/L Alkaline Phosphatase 99 (46-116) U/L C-Reactive Protein 5.0 H* (<1.0) mg/dL Total Protein 7.5 (6.4-8.2) g/dl Albumin 4.0 (3.4-5.0) g/dl Globulin 3.5 gm/dL Albumin/Globulin Ratio 1.1 (1-2) Meds: Medications Generic Name Dose Route Start Last Admin Trade Name Emily PRN Reason Stop Dose Admin Dextrose/Sodium Chloride 1,000 mls @ 150 mls/hr 04/11/20 10:30 04/11/20 10:37 Dextrose 5%-Normal Saline IV 150 mls/hr ASDIRECTED SAPNA Administration Sodium Chloride 10 ml 04/11/20 10:41 04/11/20 11:50 Saline Flush FLUSH 10 ml ONETIME PRN Administration IV FLUSH Discontinued Medications Generic Name Dose Route Start Last Admin Trade Name Freq PRN Reason Stop Dose Admin Diatrizoate Meglum/Diatrizoate Sod 120 ml 04/11/20 10:41 04/11/20 11:50 Gastrografin 37% PO 04/11/20 10:42 45 ml ONETIME ONE Administration Iopamidol 50 ml 04/11/20 10:41 04/11/20 11:50 Isovue-300 (61%) IVPUSH 04/11/20 10:42 50 ml ONETIME ONE Administration Iopamidol 100 ml 04/11/20 10:41 04/11/20 11:50 Isovue-300 (61%) IVPUSH 04/11/20 10:42 100 ml ONETIME ONE Administration Lidocaine HCl 10 ml 04/11/20 08:31 04/11/20 09:05 Xylocaine 2% Jelly MUCMEM 04/11/20 08:32 10 ml ONETIME ONE Administration - Radiology Interpretation Free Text/Narrative:: 69-year-old male presents to the ED with recurrent bowel movements containing bright red blood since around 1800 hrs. last evening. He states the initial bowel movement was somewhat hard and painful to pass and followed by by other 3 other bowel movements over the next 3 hours. All contained a little bit of blood. Subsequently he has had a solid blood stool per rectum at 0430 hrs. and again at 0600 hrs. this morning containing a large amount of clots. His vital signs are otherwise stable. No past history of bleeding per rectum. Last colonoscopy age 50 which is nearly 20 years ago. Plan viscous lidocaine will be applied to the anus and rectal vault. We will proceed with a rigid sigmoidoscopy to see if the blood is coming from upper portions of the colon or in the lower 12 inches. Procedure explained in full to the patient and consent will be obtained. Routine labs will be obtained a CBC CMP and CRP. Patient will also have a urinalysis performed since he reports the urine to be quite dark in color. - Re-Assessments/Exams Free Text/Narrative Re-Assessment/Exam: 04/11/20 10:28 Total white count is mildly elevated at 13.82. Differential shows 82.6% neutrophils on the auto differential. Hemoglobin is 15.9 with hematocrit of 48.1. Platelet count 154,000 PT is 11.4 with an INR of 1.07 PTT is 27.7. Sodium 141 with potassium 4.3 chloride 104 with a bicarb of 28 anion gap is 13.3. BUN is 24 with a creatinine of 1.1. GFR is greater than 60. BUN/creatinine ratio slightly elevated at 21.8. Glucose 112. Calcium 9.2. Liver function normal. C-reactive protein elevated at 5.0. Total protein is 7.5 with an albumin fraction of 4.0. 04/11/20 10:32 rigid sigmoidoscopy performed up to 17 cm and I only encountered a lot of darker blood and bright red blood with no definitive clots. The blood coated the entire lining of the colon and I was unable to visualize normal mucosa. There does not appear to be any significant internal hemorrhoids. Lab tests reveal an elevated white count of 13.92 with a left shift suggesting an infective process. CRP is elevated at 5.0. This brings into question whether or not he may have some low-grade diverticulitis as he has tenderness upper left colon laterally. We will therefore proceed with CT of the abdomen and pelvis with oral and IV contrast. IV will be D5 normal saline at 150 mils per hour. 04/11/20 12:38 CT of the abdomen and pelvis has been completed with IV and oral contrast. Liver shows no discrete parenchymal abnormality. Spleen appears normal. Adrenal glands shows no nodule. Pancreas is within normal limits. Gallbladder contains no calcified gallstones. Kidneys show symmetric contrast enhancement. Very small low-density finding noted within the approximate mid left kidney measuring about 4 to 5 mm. This is nonspecific but most likely represents a minimal cyst. Aorta shows no aneurysm. No retroperitoneal adenopathy or mesenteric abnormalities are identified. No pelvic mass or adenopathy is appreciated. Small fat-containing partial left inguinal hernia appreciated. By history he had felt that they were had both been repaired by Dr. Gris Dugan 5 years ago. There is bowel wall thickening being seen mostly within the transverse colon and descending colon this involves a small portion of the sigmoid colon findings are compatible with a nonspecific colitis. Appendix is felt to be seen and normal. Delayed images show contrast within the distal ureters and bladder. Bone window settings were reviewed which shows mild scoliosis within the spine with mild scattered with scattered degenerative change. No acute osseous abnormalities appreciated severe diabetic degenerative changes seen within the right hip with mild degenerative changes noted within the left hip. 04/11/20 13:[address] Narvaez on-call surgeon and the decision made to keep the patient in the hospital for bowel cleanse overnight with a planed colonoscopy in the morning. Since there appears to be significant inflammation of the transverse colon and portions of the descending colon compatible with a possible colitis stools will be collected for culture and sensitivity x2 to rule out an infective process causing dysentery. Since the patient is a vegan there is a potential for enterogenic E. coli which should not be treated with antibiotic therapy. Departure - Departure Time of Disposition: 13:08 Disposition: Admitted As Inpatient 66 Condition: Fair Clinical Impression: Lower gastrointestinal hemorrhage - Discharge Information *PRESCRIPTION DRUG MONITORING PROGRAM REVIEWED*: Not Applicable *COPY OF PRESCRIPTION DRUG MONITORING REPORT IN PATIENT SEUN: Not Applicable Referrals: Fracisco Tam PA-C [Primary Care Provider] - Forms: ED Department Discharge Sepsis Event Note (ED) - Evaluation Sepsis Screening Result: No Definite Risk - Focused Exam Vital Signs: Vital Signs Temp Pulse Resp BP Pulse Ox 04/11/20 07:25 36.6 C 98 18 164/79 H 98 - My Orders Last 24 Hours: My Active Orders 04/11/20 10:30 Dextrose 5%-0.9% NaCl [Dextrose 5%-Normal Saline] 1,000 ml IV ASDIRECTED 04/11/20 10:41 Sodium Chloride 0.9% [Saline Flush] 10 ml FLUSH ONETIME PRN - Assessment/Plan Last 24 Hours: My Active Orders 04/11/20 10:30 Dextrose 5%-0.9% NaCl [Dextrose 5%-Normal Saline] 1,000 ml IV ASDIRECTED 04/11/20 10:41 Sodium Chloride 0.9% [Saline Flush] 10 ml FLUSH ONETIME PRN
[2020-04-11] MEDS ORDERED: Lidocaine 2% Jelly 10 ML Urojet MUCMEM ONE (08:31)
[2020-04-11] MEDS ORDERED: Dextrose 5%-0.9% NaCl 1,000 ML IV SCH (10:30)
[2020-04-11] MEDS ORDERED: Iopamidol 612 MG/ML 50 ML SDV IVPUSH ONE (10:41)
[2020-04-11] MEDS ORDERED: Iopamidol 612 MG/ML 100 ML Bottle IVPUSH ONE (10:41)
[2020-04-11] MEDS ORDERED: Diatrizoate Meglumine/Diatrizoate Sodium 37% 120 ML Bottle PO ONE (10:41)
[2020-04-11] MEDS: Sodium Chloride 0.9% 10 ML Syringe FLUSH PRN ×2 (10:45→11:50)
--- NOTE | 2020-04-11 12:31 | CT ---
CT abdomen and pelvis Technique: Multiple axial sections were obtained from above the dome of the diaphragm inferiorly through the pubic symphysis. Intravenous and oral contrast was utilized. Delayed images were also obtained through the bladder. Comparison: Prior CT abdomen and pelvis study of 12/17/16. Findings: Visualized lung bases shows mild bibasilar atelectasis. Liver shows no discrete parenchymal abnormality. Spleen appears normal. Adrenal glands show no nodule. Pancreas is within normal limits. Gallbladder contains no calcified gallstones. Kidneys show symmetric contrast enhancement. Very small low density finding noted within the approximate mid left kidney measuring about 4-5 mm. This is nonspecific but most likely represents a minimal cyst. Aorta shows no aneurysm. No retroperitoneal adenopathy or mesenteric abnormalities are seen. No pelvic mass or adenopathy is appreciated. Small fat containing partial left inguinal hernia is noted. There is bowel wall thickening being seen mostly within the transverse colon and descending colon. This involves a small portion of the sigmoid colon. Findings are compatible with a nonspecific colitis. Appendix is felt to be seen and is normal. Delayed images shows contrast within the distal ureters and bladder. Bone window settings were reviewed which shows mild scoliosis within the spine with mild scattered degenerative change. No acute osseous abnormality is appreciated. Severe degenerative change seen within the right hip with mild degenerative change is noted within the left hip. Impression: 1. Diffuse bowel wall thickening within the transverse, descending, and portions of the sigmoid colon compatible with a nonspecific colitis. 2. Other findings believed to be chronic as noted above. Diagnostic code #3
[2020-04-11] MEDS ORDERED: Polyethylene Glycol/Electrolytes 4,000 ML Bottle PO ONE ×2 (13:03→18:05)
--- NOTE | 2020-04-11 13:18 | PCM.HP.2 ---
H&P History of Present Illness - General Date of Service: 04/11/20 Admit Problem/Dx: Admission Diagnosis/Problem Admission Diagnosis/Problem Bleeding from anus Source of Information: Patient History Limitations: Reports: No Limitations - History of Present Illness Initial Comments - Free Text/Narative: Mr. Lira is a 69 yo man who presents with painless rectal bleeding. This is the first time this has happened. He noticed bloody stool last night, and had some unease and cramping that was relieved with passage of stool and james bright red blood. His last colonoscopy was about 20 years ago and no abnormalities were found. He denies personal or family history of inflammatory bowel disease, although he had a cousin who had some sort of ostomy in his 30s related to unspecified bowel issues. His maternal grandmother was diagnosed with metastatic colon cancer in her 80s. The patient reports hospitalization as a teenager with bowel issues. He does not know what his diagnosis was, but apparently there was mention for suspicion of appendicitis or need for surgery. His bowel habits tend to be regular, but he will periodically go several days without a bowel movement. He denies unintentional weight loss. He does not take anticoagulation or antiplatelet therapy. He takes naproxen and celebrex irregularly, as needed for arthritis which affects his right hip and knees more than anything. His arthritis is worse in the mornings. He had some initial blood work done to investigate for rheumatologic issues which came back normal. He reports symptoms of reflux, and sleeps with a few bricks under his mattress, which helps with these symptoms. He will take prilosec only as needed. He denies history of peptic ulcer and has never had an upper endoscopy. He has been hemodynamically stable in the ER with a normal Hgb on initial lab work. He has not passed any more blood per rectum since [address] scan shows wall thickening of the colon, most notably in the transverse colon, suggesting nonspecific colitis. His WBC is elevated at 13.8, and CRP elevated at 5. He is nontender on exam, and rectal exam is negative for palpable mass, tenderness, or gross blood. Onset of Symptoms: Reports: Today Lower Abdomen Pain Score (Numeric/FACES): 1 - Related Data Allergies/Adverse Reactions: Allergies Allergy/AdvReac Type Severity Reaction Status Date / Time latex Allergy Blisters Verified 04/11/20 07:20 metoprolol Allergy Cannot Verified 04/11/20 07:20 Remember Sulfa (Sulfonamide Allergy Hives Verified 04/11/20 07:20 Antibiotics) valdecoxib [From Bextra] Allergy Hives Verified 04/11/20 07:20 aspirin AdvReac Nausea Verified 04/11/20 07:20 ibuprofen AdvReac gi upset Verified 04/11/20 07:20 Home Medications: Home Meds Nortriptyline 25 mg PO DAILY 07/21/16 [History] lisinopriL [Prinivil] 40 mg PO DAILY 07/21/16 [History] Indomethacin [Indomethacin ER] 75 mg PO DAILY #15 capsule.er 12/30/16 [Rx] Acetaminophen/Codeine [Tylenol with Codeine No.3 300MG/30MG] 1 tab PO Q4H PRN 04/11/20 [History] Past Medical History HEENT History: Reports: Allergic Rhinitis Cardiovascular History: Reports: High Cholesterol, Hypertension Respiratory History: Reports: None Other Respiratory History: . Gastrointestinal History: Reports: Chronic Constipation, GERD, Other (See Below) Other Gastrointestinal History: L inguinal hernia. 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 Musculoskeletal History: Reports: Osteoarthritis Other Musculoskeletal History: chronic hip pain Neurological History: Reports: Migraines Psychiatric History: Reports: Anxiety, Depression Endocrine/Metabolic History: Reports: Diabetes, Type II Hematologic History: Reports: None Immunologic History: Reports: None Oncologic (Cancer) History: Reports: None Dermatologic History: Reports: None - Infectious Disease History Infectious Disease History: Reports: Chicken Pox, Mumps - Past Surgical History Head Surgeries/Procedures: Reports: None HEENT Surgical History: Reports: Naso-Sinus Surgery, Oral Surgery Cardiovascular Surgical History: Reports: None Respiratory Surgical History: Reports: None GI Surgical History: Reports: Colonoscopy, Hernia, Inguinal Male Surgical History: Reports: None Endocrine Surgical History: Reports: None Neurological Surgical History: Reports: None Musculoskeletal Surgical History: Reports: None Oncologic Surgical History: Reports: None Dermatological Surgical History: Reports: None - Past Imaging History Past Imaging History: Reports: None Social & Family History - Family History Family Medical History: No Pertinent Family History HEENT: Reports: Cataract Cardiac: Reports: High Cholesterol, Hypertension Respiratory: Reports: None GI: Reports: None : Reports: None OBGYN: Reports: None Musculoskeletal: Reports: Arthritis Neurological: Reports: Migraines Oncologic: Reports: Colon - Tobacco Use Tobacco Use Status *Q: Never Tobacco User - Caffeine Use Caffeine Use: Reports: Soda, Tea - Recreational Drug Use Recreational Drug Use: No - Living Situation & Occupation Living situation: Reports: , with Family (daughter) Occupation: Unemployed H&P Review of Systems - Review of Systems: Review Of Systems: See Below General: Reports: No Symptoms HEENT: Reports: No Symptoms Pulmonary: Reports: No Symptoms Cardiovascular: Reports: No Symptoms Gastrointestinal: Reports: Bloody Stool Genitourinary: Reports: No Symptoms Musculoskeletal: Reports: Joint Pain Skin: Reports: No Symptoms Psychiatric: Reports: No Symptoms Neurological: Reports: No Symptoms Hematologic/Lymphatic: Reports: No Symptoms Immunologic: Reports: No Symptoms Exam - Exam Exam: See Below - Vital Signs Vital Signs: Last Vital Signs Temp 36.6 C 04/11/20 07:25 Pulse 98 04/11/20 07:25 Resp 18 04/11/20 07:25 BP 164/79 H 04/11/20 07:25 Pulse Ox 98 04/11/20 07:25 Weight: 88.451 kg - Exam General: Alert, Oriented, Cooperative HEENT: Conjunctiva Clear Neck: Supple, Trachea Midline Lungs: Clear to Auscultation, Normal Respiratory Effort Cardiovascular: Regular Rate, Regular Rhythm GI/Abdominal Exam: Soft, Non-Tender, No Mass (Male) Exam: Normal Inspection Rectal (Males) Exam: Normal Exam, Normal Rectal Tone, Prostate Normal Back Exam: Other (no tenderness at sacroiliac joint) Skin: Warm, Dry Neuro Extensive - Mental Status: Alert, Oriented x3 Psychiatric: Normal Mood - Patient Data Lab Results Last 24 hrs: Laboratory Results - last 24 hr 04/11/20 04/11/20 04/11/20 Range/Units 08:54 08:54 08:54 WBC 13.82 H (4.23-9.07) K/mm3 RBC 5.26 (4.63-6.08) M/mm3 Hgb 15.9 (13.7-17.5) gm/dl Hct 48.1 (40.1-51.0) % MCV 91.4 (79.0-92.2) fl MCH 30.2 (25.7-32.2) pg MCHC 33.1 (32.2-35.5) g/dl RDW Std Deviation 45.2 H (35.1-43.9) fL Plt Count 154 L (163-337) K/mm3 MPV 11.4 (9.4-12.3) fl Neut % (Auto) 82.6 H (34.0-67.9) % Lymph % (Auto) 9.8 L (21.8-53.1) % Hays % (Auto) 6.6 (5.3-12.2) % Eos % (Auto) 0.6 L (0.8-7.0) Baso % (Auto) 0.2 (0.1-1.2) % Neut # (Auto) 11.42 H (1.78-5.38) K/mm3 Lymph # (Auto) 1.35 (1.32-3.57) K/mm3 Hays # (Auto) 0.91 H (0.30-0.82) K/mm3 Eos # (Auto) 0.08 (0.04-0.54) K/mm3 Baso # (Auto) 0.03 (0.01-0.08) K/mm3 Manual Slide Review Normal smear PT 11.4 (9.7-12.0) SECONDS INR 1.07 APTT 27.7 (21.7-31.4) SECONDS Sodium 141 (136-145) mEq/L Potassium 4.3 (3.5-5.1) mEq/L Chloride 104 (98-107) mEq/L Carbon Dioxide 28 (21-32) mEq/L Anion Gap 13.3 (5-15) BUN 24 H (7-18) mg/dL Creatinine 1.1 (0.7-1.3) mg/dL Est Cr Clr Drug Dosing 65.44 mL/min Estimated GFR (MDRD) > 60 (>60) mL/min BUN/Creatinine Ratio 21.8 H (14-18) Glucose 112 (80-115) mg/dL Calcium 9.2 (8.5-10.1) mg/dL Total Bilirubin 1.0 (0.2-1.0) mg/dL AST 37 (15-37) U/L ALT 57 (16-63) U/L Alkaline Phosphatase 99 (46-116) U/L C-Reactive Protein 5.0 H* (<1.0) mg/dL Total Protein 7.5 (6.4-8.2) g/dl Albumin 4.0 (3.4-5.0) g/dl Globulin 3.5 gm/dL Albumin/Globulin Ratio 1.1 (1-2) Result Diagrams: 04/11/20 08:54 04/11/20 08:54 Sepsis Event Note - Evaluation Sepsis Screening Result: No Definite Risk - Focused Exam Vital Signs: Vital Signs Temp Pulse Resp BP Pulse Ox 04/11/20 07:25 36.6 C 98 18 164/79 H 98 Problem List Initiated/Reviewed/Updated: Yes Orders Last 24hrs: Active Orders 24 hr Category Date Time Status Patient Status [ADT] Routine ADT 04/11/20 12:59 Ordered Activity as Tolerated [RC] .Routine Care 04/11/20 12:59 Ordered Antiembolic Devices [RC] PER UNIT ROUTINE Care 04/11/20 13:00 Ordered Communication Order [RC] ASDIRECTED Care 04/11/20 13:04 Ordered Oxygen Therapy [RC] PRN Care 04/11/20 12:59 Ordered RT Incentive Spirometry [RC] Q1HWA Care 04/11/20 12:59 Ordered Vital Signs [RC] Q4HR Care 04/11/20 12:59 Ordered Clear Liquid Diet [DIET] Diet 04/11/20 Breakfast Ordered Nothing Per Oral Diet [DIET] Diet 04/12/20 Breakfast Ordered BASIC METABOLIC PANEL,BMP [CHEM] AM Lab 04/12/20 05:11 Ordered CBC WITH AUTO DIFF [HEME] AM Lab 04/12/20 05:11 Ordered STOOL CULTURE/SHIGA TOXIN [MREF] Stat Lab 04/11/20 13:05 Ordered STOOL CULTURE/SHIGA TOXIN [MREF] Stat Lab 04/11/20 13:07 Ordered Dextrose 5%-0.9% NaCl [Dextrose 5%-Normal Saline] 1,000 Med 04/11/20 10:30 Active ml IV ASDIRECTED KCl/Na Sulf,Bicarb,Cl/PEG 3351 [GoLytely] Med 04/11/20 13:03 Once 4,000 ml PO ONETIME ONE Lactated Ringers @ 100 MLS/HR(1000ml Bag) Med 04/11/20 13:00 Ordered Lactated Ringers [Ringers, Lactated] 1,000 ml IV ASDIRECTED Sodium Chloride 0.9% [Saline Flush] Med 04/11/20 10:41 Active 10 ml FLUSH ONETIME PRN Schedule Procedure [COMM] Routine Oth 04/12/20 13:03 Ordered Sequential Compression Device [OM.PC] Routine Oth 04/11/20 12:59 Ordered Resuscitation Status Routine Resus Stat 04/11/20 12:59 Ordered Medication Orders Dextrose/Sodium Chloride (Dextrose 5%-Normal Saline) 1,000 mls @ 150 mls/hr IV ASDIRECTED SAPNA Last Admin: 04/11/20 10:37 Dose: 150 mls/hr Documented by: ZACHARY Lactated Ringer's (Ringers, Lactated) 1,000 mls @ 100 mls/hr IV ASDIRECTED SAPNA Polyethylene Glycol/Electrolytes (Golytely) 4,000 ml PO ONETIME ONE Stop: 04/11/20 13:04 Sodium Chloride (Saline Flush) 10 ml FLUSH ONETIME PRN PRN Reason: IV FLUSH Last Admin: 04/11/20 11:50 Dose: 10 ml Documented by: Admin: 04/11/20 10:45 Dose: 10 ml Documented by: ZACHARY Assessment/Plan Comment:: New onset rectal bleeding with evidence of colitis suggested by labs and imaging. Hemodynamically stable. Differential includes reactive colitis to intraluminal hemorrhage, infectious colitis, inflammatory bowel disease, possible malignancy. He reports symptoms of GERD and does not take antacid medication. He takes NSAIDs fairly regularly. Plan to admit to observation, complete bowel prep and perform EGD and colonoscopy for GI bleed tomorrow. -Vitals q 4h -no pain medication indicated -LR @ 100 cc/hr -activity as tolerated -clear liquids, NPO after midnight -Golytely bowel prep -repeat AM labs -stool cultures pending, no antibiotics indicated currently -SCD for DVT ppx - Mortality Measure Prognosis:: Good
--- NOTE | 2020-04-11 14:44 | PCM.PREANE ---
Preanesthetic Assessment - Procedure Proposed Procedure: EGD/Colonoscopy - Anesthesia/Transfusion/Family Hx Anesthesia History: Prior Anesthesia Reaction (Migraines/Nausea/Vomiting with anesthesia) Other Type of Anesthesia Reaction Comment: pt states that he was unable to void after last surgery-nose Family History of Anesthesia Reaction: No Family History of Anesthesia Reaction, Other: none Transfusion History: No Prior Transfusion(s) - Review of Systems General: Fatigue Pulmonary: No Symptoms Gastrointestinal: Constipation (with first stool), Hematochezia, Nausea Neurological: Numbness (left foot), Difficulty Walking (right hip "issues" uses cane), Weakness ( in legs, arthritis) Other: Reports: Neck Pain (right side) - Physical Assessment NPO Status Date: 04/11/20 NPO Status Time: 00:00 Vital Signs: Last Vital Signs Temp 36.6 C 04/11/20 07:25 Pulse 98 04/11/20 07:25 Resp 18 04/11/20 07:25 BP 164/79 H 04/11/20 07:25 Pulse Ox 98 04/11/20 07:25 Height: 1.78 m Weight: 88.451 kg ASA Class: 3 Mental Status: Alert & Oriented x3 Airway Class: Mallampati = 2 Dentition: Reports: Courtenay(s) Thyro-Mental Finger Breadths: 3 Mouth Opening Finger Breadths: 2 ROM/Head Extension: Limited/Partial Lungs: Clear to Auscultation, Normal Respiratory Effort Cardiovascular: Regular Rate, Regular Rhythm - Lab Values: Laboratory Last Values WBC 13.82 K/mm3 (4.23-9.07) H 04/11/20 08:54 RBC 5.26 M/mm3 (4.63-6.08) 04/11/20 08:54 Hgb 15.9 gm/dl (13.7-17.5) 04/11/20 08:54 Hct 48.1 % (40.1-51.0) 04/11/20 08:54 MCV 91.4 fl (79.0-92.2) 04/11/20 08:54 MCH 30.2 pg (25.7-32.2) 04/11/20 08:54 MCHC 33.1 g/dl (32.2-35.5) 04/11/20 08:54 RDW Std Deviation 45.2 fL (35.1-43.9) H 04/11/20 08:54 Plt Count 154 K/mm3 (163-337) L 04/11/20 08:54 MPV 11.4 fl (9.4-12.3) 04/11/20 08:54 Neut % (Auto) 82.6 % (34.0-67.9) H 04/11/20 08:54 Lymph % (Auto) 9.8 % (21.8-53.1) L 04/11/20 08:54 Crisp % (Auto) 6.6 % (5.3-12.2) 04/11/20 08:54 Eos % (Auto) 0.6 (0.8-7.0) L 04/11/20 08:54 Baso % (Auto) 0.2 % (0.1-1.2) 04/11/20 08:54 Neut # (Auto) 11.42 K/mm3 (1.78-5.38) H 04/11/20 08:54 Lymph # (Auto) 1.35 K/mm3 (1.32-3.57) 04/11/20 08:54 Crisp # (Auto) 0.91 K/mm3 (0.30-0.82) H 04/11/20 08:54 Eos # (Auto) 0.08 K/mm3 (0.04-0.54) 04/11/20 08:54 Baso # (Auto) 0.03 K/mm3 (0.01-0.08) 04/11/20 08:54 Manual Slide Review Normal smear 04/11/20 08:54 PT 11.4 SECONDS (9.7-12.0) 04/11/20 08:54 INR 1.07 04/11/20 08:54 APTT 27.7 SECONDS (21.7-31.4) 04/11/20 08:54 Sodium 141 mEq/L (136-145) 04/11/20 08:54 Potassium 4.3 mEq/L (3.5-5.1) 04/11/20 08:54 Chloride 104 mEq/L (98-107) 04/11/20 08:54 Carbon Dioxide 28 mEq/L (21-32) 04/11/20 08:54 Anion Gap 13.3 (5-15) 04/11/20 08:54 BUN 24 mg/dL (7-18) H 04/11/20 08:54 Creatinine 1.1 mg/dL (0.7-1.3) 04/11/20 08:54 Est Cr Clr Drug Dosing 65.44 mL/min 04/11/20 08:54 Estimated GFR (MDRD) > 60 mL/min (>60) 04/11/20 08:54 BUN/Creatinine Ratio 21.8 (14-18) H 04/11/20 08:54 Glucose 112 mg/dL (80-115) 04/11/20 08:54 Calcium 9.2 mg/dL (8.5-10.1) 04/11/20 08:54 Total Bilirubin 1.0 mg/dL (0.2-1.0) 04/11/20 08:54 AST 37 U/L (15-37) 04/11/20 08:54 ALT 57 U/L (16-63) 04/11/20 08:54 Alkaline Phosphatase 99 U/L (46-116) 04/11/20 08:54 C-Reactive Protein 5.0 mg/dL (<1.0) H* 04/11/20 08:54 Total Protein 7.5 g/dl (6.4-8.2) 04/11/20 08:54 Albumin 4.0 g/dl (3.4-5.0) 04/11/20 08:54 Globulin 3.5 gm/dL 04/11/20 08:54 Albumin/Globulin Ratio 1.1 (1-2) 04/11/20 08:54 SARS-CoV-2 RNA (RAN) Negative (NEGATIVE) 04/11/20 13:20 - Allergies Allergies/Adverse Reactions: Allergies Allergy/AdvReac Type Severity Reaction Status Date / Time latex Allergy Blisters Verified 04/11/20 07:20 metoprolol Allergy Cannot Verified 04/11/20 07:20 Remember Sulfa (Sulfonamide Allergy Hives Verified 04/11/20 07:20 Antibiotics) valdecoxib [From Bextra] Allergy Hives Verified 04/11/20 07:20 aspirin AdvReac Nausea Verified 04/11/20 07:20 ibuprofen AdvReac gi upset Verified 04/11/20 07:20 - Anesthesia Plan Pre-Op Medication Ordered: None - Acknowledgements Anesthesia Type Planned: MAC Pt an Appropriate Candidate for the Planned Anesthesia: Yes Alternatives and Risks of Anesthesia Discussed w Pt/Guardian: Yes Pt/Guardian Understands and Agrees with Anesthesia Plan: Yes PreAnesthesia Questionnaire HEENT History: Reports: Allergic Rhinitis Cardiovascular History: Reports: High Cholesterol, Hypertension Respiratory History: Reports: None Other Respiratory History: . Gastrointestinal History: Reports: Chronic Constipation, GERD, Other (See Below) Other Gastrointestinal History: L inguinal hernia. 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 Musculoskeletal History: Reports: Osteoarthritis Other Musculoskeletal History: chronic hip pain Neurological History: Reports: Migraines Psychiatric History: Reports: Anxiety, Depression Endocrine/Metabolic History: Reports: Diabetes, Type II Hematologic History: Reports: None Immunologic History: Reports: None Oncologic (Cancer) History: Reports: None Dermatologic History: Reports: None - Infectious Disease History Infectious Disease History: Reports: Chicken Pox, Mumps - Past Surgical History Head Surgeries/Procedures: Reports: None HEENT Surgical History: Reports: Naso-Sinus Surgery, Oral Surgery Cardiovascular Surgical History: Reports: None Respiratory Surgical History: Reports: None GI Surgical History: Reports: Colonoscopy, Hernia, Inguinal Male Surgical History: Reports: None Endocrine Surgical History: Reports: None Neurological Surgical History: Reports: None Musculoskeletal Surgical History: Reports: None Oncologic Surgical History: Reports: None Dermatological Surgical History: Reports: None - Past Imaging History Past Imaging History: Reports: None - SUBSTANCE USE Tobacco Use Status *Q: Never Tobacco User Tobacco Use Within Last Twelve Months: No Second Hand Smoke Exposure: No Days Per Week of Alcohol Use: 0 Number of Drinks Per Day: 0 Total Drinks Per Week: 0 Recreational Drug Use History: No - HOME MEDS Home Medications: Home Meds Nortriptyline 25 mg PO DAILY 07/21/16 [History] lisinopriL [Prinivil] 40 mg PO DAILY 07/21/16 [History] Indomethacin [Indomethacin ER] 75 mg PO DAILY #15 capsule.er 12/30/16 [Rx] Acetaminophen/Codeine [Tylenol with Codeine No.3 300MG/30MG] 1 tab PO Q4H PRN 04/11/20 [History] - CURRENT (IN HOUSE) MEDS Current Meds: Current Medications Dextrose/Sodium Chloride (Dextrose 5%-Normal Saline) 1,000 mls @ 150 mls/hr IV ASDIRECTED SAPNA Last Admin: 04/11/20 10:37 Dose: 150 mls/hr Documented by: Lactated Ringer's (Ringers, Lactated) 1,000 mls @ 100 mls/hr IV ASDIRECTED SAPNA Sodium Chloride (Saline Flush) 10 ml FLUSH ONETIME PRN PRN Reason: IV FLUSH Last Admin: 04/11/20 11:50 Dose: 10 ml Documented by: Discontinued Medications Diatrizoate Meglum/Diatrizoate Sod (Gastrografin 37%) 120 ml PO ONETIME ONE Stop: 04/11/20 10:42 Last Admin: 04/11/20 11:50 Dose: 45 ml Documented by: Iopamidol (Isovue-300 (61%)) 50 ml IVPUSH ONETIME ONE Stop: 04/11/20 10:42 Last Admin: 04/11/20 11:50 Dose: 50 ml Documented by: Iopamidol (Isovue-300 (61%)) 100 ml IVPUSH ONETIME ONE Stop: 04/11/20 10:42 Last Admin: 04/11/20 11:50 Dose: 100 ml Documented by: Lidocaine HCl (Xylocaine 2% Jelly) 10 ml MUCMEM ONETIME ONE Stop: 04/11/20 08:32 Last Admin: 04/11/20 09:05 Dose: 10 ml Documented by: Polyethylene Glycol/Electrolytes (Golytely) 4,000 ml PO ONETIME ONE Stop: 04/11/20 13:04
[2020-04-11] MEDS: Lactated Ringers 1,000 ML IV SCH (18:04)
[2020-04-11] MEDS: Acetaminophen/Codeine 300-30 MG Tab PO PRN (20:31)
[2020-04-12] MEDS: Lactated Ringers 1,000 ML IV SCH (01:16)
[2020-04-12] MEDS ORDERED: Propofol 200 MG/20 ML SDV ONE ×3 (09:02→10:43)
[2020-04-12] MEDS ORDERED: Lidocaine 1% 4 ML ONE (09:03)
--- NOTE | 2020-04-12 09:18 | PCM.SN.2 ---
- Free Text/Narrative Note: Admitted with painless bright red blood per rectum, WBC [address] showing colitis. S: refused all attempts at bowel prep overnight. stable. Reports abdominal pain, flank pain, hip pain O: AF-VSS WBC up to 18 this morning, Hgb stable. Awake and alert, no distress Abd soft, some diffuse tenderness to palpation, no mass. A: Significant findings include rectal bleeding, rising leukocytosis and CT showing evidence of colitis. P: diagnostic EGD and colonoscopy today. Will attempt Fleets enema this morning prior to colonoscopy. -stool cultures pending -add on C diff test, CXR, UA to rule out other infectious sources.
[2020-04-12] MEDS ORDERED: fentaNYL 100 MCG/2 ML SDV ONE (09:59)
[2020-04-12] MEDS ORDERED: Scopolamine 1.5 MG Transdermal Patch TRDERM PRN (10:13)
[2020-04-12] MEDS ORDERED: Ondansetron 4 MG/2 ML SDV ONE ×2 (10:16→10:17)
[2020-04-12] MEDS ORDERED: Dexamethasone 4 MG/ML SDV ONE (10:17)
[2020-04-12] MEDS ORDERED: Lactated Ringers 1,000 ML ONE (11:00)
[2020-04-12] MEDS ORDERED: Ondansetron 4 MG/2 ML SDV IVPUSH PRN (11:02)
--- NOTE | 2020-04-12 11:26 | PCM48HPAN ---
Post Anesthesia Note - EVALUATION WITHIN 48HRS OF ANESTHETIC Vital Signs in Normal Range: Yes Patient Participated in Evaluation: Yes Respiratory Function Stable: Yes Airway Patent: Yes Cardiovascular Function Stable: Yes Hydration Status Stable: Yes Pain Control Satisfactory: Yes Nausea and Vomiting Control Satisfactory: Yes Mental Status Recovered: Yes Vital Signs: Last Vital Signs Temp 36.9 C 04/12/20 07:24 Pulse 87 04/12/20 07:24 Resp 16 04/12/20 07:24 BP 140/65 04/12/20 07:24 Pulse Ox 92 L 04/12/20 07:24
[2020-04-12] MEDS ORDERED: Levofloxacin 750 MG Tab PO SCH (12:30)
[2020-04-12] MEDS: predniSONE 20 MG Tab PO SCH (13:38)
[2020-04-12] MEDS: metroNIDAZOLE 500 MG Tab PO SCH ×2 (13:38→21:01)
--- NOTE | 2020-04-12 13:41 | CR ---
Chest: 2 views of the chest were obtained. Comparison: Prior chest x-ray of 01/14/16. Density is noted off the left cardiac apex which represents fat. This is stable from prior exam. There appears to be slight increased density within the lingula on the lateral view. Lungs otherwise are clear. Bony structures are within normal limits for the patient's age. Impression: 1. Slight increased density within the lingula. Small area of pneumonia is a possibility. 2. Other findings as noted above which are believed to be incidental. Diagnostic code #3
[2020-04-12] MEDS: Acetaminophen/Codeine 300-30 MG Tab PO PRN (15:03)
[2020-04-12] MEDS: Lisinopril 20 MG Tab PO SCH (18:41)
[2020-04-13] MEDS: predniSONE 20 MG Tab PO SCH (06:16)
[2020-04-13] MEDS: metroNIDAZOLE 500 MG Tab PO SCH (06:16)
[2020-04-13] MEDS: Lisinopril 20 MG Tab PO SCH (08:06)
[2020-04-13 08:07] VITALS: BP 137/74
[2020-04-13 08:08] VITALS: PULSE 79
--- NOTE | 2020-04-13 08:11 | PCM.DCSUM1 ---
Discharge Summary - Hospital Course Free Text/Narrative:: Admitted with rectal bleeding on 04/11, with findings of colitis on CT scan. The patient was taken to the endoscopy suite the following day for diagnostic EGD and colonoscopy. EGD showed a hiatal hernia but no source of hemorrhage. Colon prep was poor, but there appeared to be internal hemorrhoids, releatively normal appearance of rectum, with significant mucosal inflammation of the sigmoid and descending colon. The scope was only advanced to the descending colon. A biopsy was obtained of the inflamed mucosa. Infectious workup including test for C difficile was negative. Crohn's disease is suspected, and the patient was placed on oral prednisone and levofloxacin/metronidazole. He also had a positive urinalysis. He was significantly improved the day following endoscopy and deemed fit for discharge to home, as he had no abdominal tenderness, was passing flatus and tolerating a diet. He will follow up with me in clinic in about 10 days and will be referred to gastroenterology for management of Crohn disease. Diagnosis: Stroke: No - Discharge Data Discharge Date: 04/13/20 Discharge Disposition: Home, Self-Care 01 Condition: Good - Referral to Home Health Primary Care Physician: Fracisco Tam PA-C - Discharge Plan *PRESCRIPTION DRUG MONITORING PROGRAM REVIEWED*: Not Applicable *COPY OF PRESCRIPTION DRUG MONITORING REPORT IN PATIENT SEUN: Not Applicable Prescriptions/Med Rec: Levofloxacin 750 mg PO DAILY #7 tablet metroNIDAZOLE [Metronidazole] 500 mg PO TID #21 tablet predniSONE [Prednisone] 40 mg PO DAILY #15 tab.ds.pk Home Medications: Home Meds Nortriptyline 25 mg PO DAILY 07/21/16 [History] lisinopriL [Prinivil] 40 mg PO DAILY 07/21/16 [History] Acetaminophen/Codeine [Tylenol with Codeine No.3 300MG/30MG] 1 tab PO Q4H PRN 04/11/20 [History] Celecoxib 200 mg PO DAILY PRN 04/11/20 [History] Levofloxacin 750 mg PO DAILY #7 tablet 04/13/20 [Rx] metroNIDAZOLE [Metronidazole] 500 mg PO TID #21 tablet 04/13/20 [Rx] predniSONE [Prednisone] 40 mg PO DAILY #15 tab.ds.pk 04/13/20 [Rx] Oxygen Therapy Mode: Room Air Patient Handouts: [facility] Bleeding Forms: ED Department Discharge Referrals: Fracisco Tam PA-C [Primary Care Provider] - - Discharge Summary/Plan Comment DC Time >30 min.: Yes - Patient Data Vitals - Most Recent: Last Vital Signs Temp 36.6 C 04/13/20 05:41 Pulse 86 04/13/20 05:41 Resp 20 04/13/20 05:41 BP 137/74 04/13/20 08:06 Pulse Ox 93 L 04/13/20 05:41 Weight - Most Recent: 84.935 kg I&O - Last 24 hours: Intake & Output 04/12/20 04/13/20 04/13/20 22:59 06:59 14:59 Intake Total 600 100 Output Total 1075 450 Balance -475 -350 Lab Results - Last 24 hrs: Laboratory Results - last 24 hr 04/12/20 04/12/20 04/13/20 Range/Units 11:00 12:30 05:50 WBC 21.30 H (4.23-9.07) K/mm3 RBC 4.90 (4.63-6.08) M/mm3 Hgb 14.8 (13.7-17.5) gm/dl Hct 44.3 (40.1-51.0) % MCV 90.4 (79.0-92.2) fl MCH 30.2 (25.7-32.2) pg MCHC 33.4 (32.2-35.5) g/dl RDW Std Deviation 43.9 (35.1-43.9) fL Plt Count 154 L (163-337) K/mm3 MPV 11.5 (9.4-12.3) fl Neut % (Auto) 87.2 H (34.0-67.9) % Lymph % (Auto) 5.7 L (21.8-53.1) % [place] % (Auto) 6.8 (5.3-12.2) % Eos % (Auto) 0 L (0.8-7.0) Baso % (Auto) 0.0 L (0.1-1.2) % Neut # (Auto) 18.58 H (1.78-5.38) K/mm3 Lymph # (Auto) 1.21 L (1.32-3.57) K/mm3 [place] # (Auto) 1.44 H (0.30-0.82) K/mm3 Eos # (Auto) 0.00 L (0.04-0.54) K/mm3 Baso # (Auto) 0.01 (0.01-0.08) K/mm3 Urine Color Yellow (Yellow) Urine Appearance Clear (Clear) Urine pH 7.0 (5.0-8.0) Ur Specific [place] 1.025 (1.005-1.030) Urine Protein 2+ H (Negative) Urine Glucose (UA) Negative (Negative) Urine Ketones 2+ H (Negative) Urine Occult Blood 1+ H (Negative) Urine Nitrite Positive H (Negative) Urine Bilirubin Negative (Negative) Urine Urobilinogen 2.0 H (0.2-1.0) Ur Leukocyte Esterase 1+ H (Negative) Urine RBC 5-10 H (0-5) /hpf Urine WBC 10-20 H (0-5) /hpf Ur Squamous Epith Cells 0-5 (0-5) /hpf Urine Bacteria Many H (FEW) /hpf Urine Mucus Moderate H (FEW) /hpf C.difficile [id number] Presumptive negative C. difficile Tox (PCR) Negative TG Results - Last 24 hrs: Microbiology 04/12/20 08:30 Shiga Toxin I & II - Final Stool / Feces Med Orders - Current: Current Medications Acetaminophen/Codeine Phosphate (Tylenol With Codeine No.3 300mg/30mg) 1 tab PO Q4H PRN PRN Reason: Pain Last Admin: 04/12/20 15:03 Dose: 1 tab Documented by: Levofloxacin (Levaquin) 750 mg PO Q24H [facility] Last Admin: 04/12/20 13:38 Dose: 750 mg Documented by: Lisinopril (Prinivil) 40 mg PO DAILY [facility] Last Admin: 04/13/20 08:06 Dose: 40 mg Documented by: Metronidazole (Flagyl) 500 mg PO Q8H [facility] Last Admin: 04/13/20 06:16 Dose: 500 mg Documented by: Ondansetron HCl (Zofran) 4 mg IVPUSH ONETIME PRN PRN Reason: Nausea/Vomiting Prednisone (Prednisone) 40 mg PO WITHBREAKFAST [facility] Last Admin: 04/13/20 06:16 Dose: 40 mg Documented by: Scopolamine (Transderm-Scop) 1.5 mg TRDERM ONETIME PRN PRN Reason: PONV Discontinued Medications Dexamethasone (Decadron) Confirm Administered Dose 4 mg .ROUTE .[facility] ONE Stop: 04/12/20 10:18 Diatrizoate Meglum/Diatrizoate Sod (Gastrografin 37%) 120 ml PO ONETIME ONE Stop: 04/11/20 10:42 Last Admin: 04/11/20 11:50 Dose: 45 ml Documented by: Fentanyl (Sublimaze) Confirm Administered Dose 100 mcg .ROUTE .[facility] ONE Stop: 04/12/20 10:00 Dextrose/Sodium Chloride (Dextrose 5%-Normal Saline) 1,000 mls @ 150 mls/hr IV ASDIRECTED [facility] Last Admin: 04/11/20 10:37 Dose: 150 mls/hr Documented by: Lactated Ringer's (Ringers, Lactated) 1,000 mls @ 100 mls/hr IV ASDIRECTED [facility] Last Admin: 04/12/20 01:16 Dose: 100 mls/hr Documented by: Lidocaine HCl (Xylocaine-Mpf 1%) Confirm Administered Dose 4 mls @ as directed .ROUTE .[facility] ONE Stop: 04/12/20 09:04 Lactated Ringer's (Ringers, Lactated) Confirm Administered Dose 1,000 mls @ as directed .ROUTE .[facility] ONE Stop: 04/12/20 11:01 Iopamidol (Isovue-300 (61%)) 50 ml IVPUSH ONETIME ONE Stop: 04/11/20 10:42 Last Admin: 04/11/20 11:50 Dose: 50 ml Documented by: Iopamidol (Isovue-300 (61%)) 100 ml IVPUSH ONETIME ONE Stop: 04/11/20 10:42 Last Admin: 04/11/20 11:50 Dose: 100 ml Documented by: Lidocaine HCl (Xylocaine 2% Jelly) 10 ml MUCMEM ONETIME ONE Stop: 04/11/20 08:32 Last Admin: 04/11/20 09:05 Dose: 10 ml Documented by: Ondansetron HCl (Zofran) Confirm Administered Dose 4 mg .ROUTE .[facility] ONE Stop: 04/12/20 10:17 Ondansetron HCl (Zofran) Confirm Administered Dose 4 mg .ROUTE .[facility] ONE Stop: 04/12/20 10:18 Polyethylene Glycol/Electrolytes (Golytely) 4,000 ml PO ONETIME ONE Stop: 04/11/20 13:04 Last Admin: 04/11/20 19:02 Dose: Not Given Documented by: Polyethylene Glycol/Electrolytes (Golytely) 4,000 ml PO ONETIME ONE Stop: 04/11/20 18:06 Last Admin: 04/11/20 20:29 Dose: 4,000 ml Documented by: Propofol (Diprivan 20 Ml) Confirm Administered Dose 200 mg .ROUTE .[facility]-MED ONE Stop: 04/12/20 09:03 Propofol (Diprivan 20 Ml) Confirm Administered Dose 200 mg .ROUTE .[facility]-MED ONE Stop: 04/12/20 10:01 Propofol (Diprivan 20 Ml) Confirm Administered Dose 200 mg .ROUTE .[facility]-MED ONE Stop: 04/12/20 10:44 Sodium Chloride (Saline Flush) 10 ml FLUSH ONETIME PRN PRN Reason: IV FLUSH Last Admin: 04/11/20 11:50 Dose: 10 ml Documented by:
--- NOTE | 2020-04-24 09:00 | PCM.PRNOTE ---
- Free Text/Narrative Note: Date: 04/12/2020 Procedure: diagnostic EGD and colonoscopy Indication: GI bleed Endoscopist: Lizandro Narvaez MD Findings: colitis with relative rectal sparing. Prep was poor. Small hiatal hernia. Detailed Report: The patient was taken to the endoscopy suite and placed in left lateral decubitus position. A bite-block was placed. Timeout was performed, and monitored anesthesia care was initiated. The endoscope was inserted in the mouth and advanced all the way to the second portion of the duodenum with ease. On withdrawal, mucosal surfaces were carefully inspected. No gross abnormalities were noted except for small hiatal hernia noted on retroflexion within the stomach. The esophageal mucosa appeared relatively normal. Scope was withdrawn. Next attention was turned to colonoscopy. The anus appeared normal. Digital rectal exam was unremarkable. The colonoscope was inserted and advanced as far as the descending colon. The prep was poor. However, there was apparent active inflammation of the descending and sigmoid colon. There was relative rectal sparing. A biopsy was obtained from an inflamed site within the mid sigmoid. On retroflexion, there was minor internal hemorrhoidal disease. Air was suctioned prior to withdrawal of the scope. The patient tolerated the procedure well.
== END 2020-04-13 11:45 | disposition home or self-care (01) | DRG 392 ==
LOC: JD.ED 07:06 → JD.MS 12:59 → OBSVTOIN 13:07
PROVIDERS: ADMIT Surgery; ATTEND Surgery
PROC: 0DJ08ZZ Inspection of Upper Intestinal Tract, Via Natural or Artificial Opening Endoscopic (ICD-10-PCS; principal; 2020-04-12)
PROC: 0DBN8ZX Excision of Sigmoid Colon, Via Natural or Artificial Opening Endoscopic, Diagnostic (ICD-10-PCS; 2020-04-12)
DX: K52.9 Noninfective gastroenteritis and colitis, unspecified (principal); K50.90 Crohn's disease, unspecified, without complications; K44.9 Diaphragmatic hernia without obstruction or gangrene; K92.1 Melena; J30.9 Allergic rhinitis, unspecified; E78.00 Pure hypercholesterolemia, unspecified; I10 Essential (primary) hypertension; K59.09 Other constipation; K21.9 Gastro-esophageal reflux disease without esophagitis; M19.90 Unspecified osteoarthritis, unspecified site; G89.29 Other chronic pain; M25.559 Pain in unspecified hip; E11.9 Type 2 diabetes mellitus without complications; F32.9 Major depressive disorder, single episode, unspecified; K64.8 Other hemorrhoids; Z79.52 Long term (current) use of systemic steroids; F41.9 Anxiety disorder, unspecified; Z87.442 Personal history of urinary calculi; Z98.890 Other specified postprocedural states; G43.909 Migraine, unspecified, not intractable, without status migrainosus; Z88.2 Allergy status to sulfonamides; Z88.6 Allergy status to analgesic agent; Z88.8 Allergy status to other drugs, medicaments and biological substances; Z91.040 Latex allergy status; Z79.899 Other long term (current) drug therapy; Z20.822 Contact with and (suspected) exposure to COVID-19
CPT/HCPCS: 36415; 74177; 80053; 85025; 85610; 85730; 86140; 99285; J7042; Q9963; Q9967 ×2; 00813; 45300; 51798; 71046; 71046-26; 80048; 81001; 87045; 87046; 87086; 87088; 87186; 87493; 87899; 88305; 99284; A9270-GY; J1100; J2001; J2405; J2704; J3010; J7120; J7512; U0002

== ENCOUNTER 2022-11-22 02:18 | Emergency (ER) | payer MEDICARE, OTHER ==
[2022-11-22 02:29] VITALS: BP 159/83; PULSE 78
== END 2022-11-22 04:25 | disposition home or self-care (01) ==
LOC: JD.ED 02:18
DX: K59.00 Constipation, unspecified (principal); E78.00 Pure hypercholesterolemia, unspecified; K21.9 Gastro-esophageal reflux disease without esophagitis; E11.9 Type 2 diabetes mellitus without complications; Z91.040 Latex allergy status; Z88.2 Allergy status to sulfonamides; Z88.8 Allergy status to other drugs, medicaments and biological substances; Z79.899 Other long term (current) drug therapy
CPT/HCPCS: 74018; 74018-26; 99283